=== PATIENT | female | born 1965 | race Caucasian/White ===

== ENCOUNTER → 2023-06-30 | Outpatient (CLI) | payer OTHER, SELFPAY ==
--- NOTE | 2023-06-30 15:37 | BI_ITS ---
MAMMOGRAPHY - BILATERAL SCREENING REASON FOR EXAM: Female, 58 years old. Routine annual screening examination. PERTINENT HISTORY: Mother with breast cancer. Aunt with breast cancer. TECHNIQUE: Digital bilateral breast jaiden (3D mammographic acquisition) in the CC and MLO projections. 2-D mediolateral oblique (MLO) and craniocaudad (CC) views of both breasts were obtained. CAD: Full Field Digital Mammography with Computer Added Detection was performed. COMPARISON: No comparison mammograms available at this time. If any prior films become available, an addendum to this report can be generated. FINDINGS: Breast Composition: The breasts are heterogeneously dense, which may obscure small masses. There are no dominant masses or suspicious calcifications. There is a 6.7 mm x 3.2 mm well-defined nodule in the deep central lateral aspect of the left breast. Correlation with ultrasound is recommended. No other significant abnormalities are identified. BI/SCRN MAMM (CAD)W/JAIDEN BILAT IMPRESSION: 6.7 mm x 3.2 mm well-defined nodule in the deep central lateral aspect of the left breast. Correlation with ultrasound is recommended. ASSESSMENT CATEGORY: BIRADS Category 0: Incomplete. Need additional imaging evaluation. A letter regarding these results will be sent to the patient by the facility within 30 days. Approximately 10% of breast cancers are not detected by mammography. A normal mammogram should not delay biopsy of a clinically suspicious abnormality. [id number] Electronically Signed: Phillip Guerrero MD at 13:00 EST ,
== END | disposition home or self-care (01) ==
LOC: OPBI 15:36
PROVIDERS: PCP Internal Medicine; Referring Provider Obstetrics & Gynecology; Visit Provider Obstetrics & Gynecology
DX: Z12.31 Encounter for screening mammogram for malignant neoplasm of breast (principal)
CPT/HCPCS: 77063; 77067

== ENCOUNTER → 2023-07-13 | Outpatient (CLI) | payer OTHER, SELFPAY ==
--- NOTE | 2023-07-13 13:21 | US_ITS ---
STUDY: ULTRASOUND BREAST - LEFT REASON FOR EXAM: Female, 58 years old. Abnormal screening mammogram. TECHNIQUE: Axial and longitudinal images of the LEFT breast were performed with a high resolution ultrasound transducer. # OF IMAGES: 31 COMPARISON: Comparison is made with prior mammogram dated June 30, 2023. FINDINGS: LEFT Breast: The lateral aspect of the left breast was examined with ultrasound. The mammographic guide mounted corresponds to a 1.1 cm x 0.7 cm and 0.5 cm lymph node. US/Breast Limited Unilateral IMPRESSION: 1.1 cm x 0.7 cm x 0.5 cm benign-appearing lymph node. ASSESSMENT CATEGORY: BIRADS Category 2: Benign. A letter regarding these results will be sent to the patient by the facility within 30 days. Electronically Signed: Phillip Guerrero MD at 14:37 EST ,
== END | disposition home or self-care (01) ==
PROVIDERS: PCP Internal Medicine; Referring Provider Registered Nurse; Visit Provider Registered Nurse
DX: R92.8 Other abnormal and inconclusive findings on diagnostic imaging of breast (principal)
CPT/HCPCS: 76642

== ENCOUNTER 2023-09-27 07:46 | Day surgery (SDC) | payer OTHER, SELFPAY ==
[2023-09-27] VITALS (7 sets, daily range): BP systolic 122–184; BP diastolic 70–102; PULSE 72–91; RESP 16–20; TEMP 36.2–36.9; O2SAT 94–97; BMI 57.2
--- OUTSIDE RECORDS SUMMARY | 2023-09-27 08:11 | XMS RPT_ITS | CCD ---
Author Name Unknown Address [address] [place] [address] Organization [facility] Care Team Providers Care Director Of Undergraduate Admissions Name Role Phone ALVA AYERS Admitting Unavailable JOVANNI CALVO MD Consulting Unavailable ALVA AYERS Attending Unavailable ALVA AYERS Primary Care Unavailable PROVIDER, UNKNOWN Consulting Unavailable PROVIDER, UNKNOWN Consulting Unavailable Problems Problem Classification Problem Date Documented Da te Episodic/Chronic Headache; including migraine (3 sources) Headache; including migraine; Translations: [Headache, unspecified] Onset: 07-26-2020 Nausea and vomiting (1 source) Vomiting, unspecified; Translations: [Vomiting, unspecified] Onset: 07-26-2020 Other gastrointestinal disorders (1 source) Diarrhea, unspecified; Translations: [Diarrhea, unspecified] Onset: 07-26-2020 Episodic Results Test Name Value Interpretation Reference Range Facil ity Encounters Encounter Date Encounter Type Care Provider Facility Start: 07-26-2020 End: 07-26-2020 Patient encounter procedure ALVA AYERS [facility] Payers Date Payer Category Payer Unknown [id number] Unknown [id number] Summary Purpose Family History No Family History Records FoundNo Family History Records Found Advance Directives No Advanced Directives Records FoundNo Advanced Directives Records Found Additional Source Comments INFORMATION SOURCE (unrecogn ized section and content) DATE CREATED AUTHOR AUTHOR'S ORGANIZ ATION 08/07/2020 [facility] FOR RECORDS PERTAINING TO PATIENTS WHO ARE OR HAVE BEEN ENROLLED IN A CHEMICAL DEPENDENCY/SUBSTANCEABUSE PROGRAM, SOME INFORMATION MAY BE OMITTED. This clinical summary was aggregated from multiple sources. Caution should be exercised in using it in the provision of clinical care. This summary normalizes information from multiple sources, and as a consequence, information in this document may materially change the coding, format and clinical context of patient data. In addition, data may be omitted in some cases. CLINICAL DECISIONS SHOULD BE BASED ON THE PRIMARY CLINICAL RECORDS. [facility] [employer] [facility]. provides no warranty or guarantee of the accuracy or completeness of information in this document.
[2023-09-27] MEDS: Lactated Ringers 1,000 ML 15 ML IV (08:18)
--- NOTE | 2023-09-27 09:00 | H&P.OPEN ---
HPI - General General Date of Service: 09/27/23 HPI Narrative DICKSON CHRIS, is a 58 F who presents for screening colonoscopy. Patient states she had a colonoscopy 6 years ago was told to follow-up in 5 years?done in [place]. Patient states her scope was negative do not have the report. Patient denies any chronic abdominal pain/nausea/vomiting/reflux. Patient has bowel movements daily denies any blood. Patient denies any family history of colon cancer. [facility] Medical History Eclampsia Hay fever History of edema Hypertension Leg cramps Migraine headache Non-smoker Post-menopausal Seizures Shingles Shortness of breath on exertion Wears glasses Home Medications losartan 100 mg tablet 100 mg PO DAILY #30 tabs 08/16/23 [Rx Last Taken 09/27/23] Allergy/AdvReac Type Severity Reaction Status Date / Time codeine Allergy Mild Shortness Verified 09/27/23 08:17 of breath Family History Aunt Breast cancer Grandmother Heart disease Ovarian cancer Grandfather Heart disease Grandfather Heart disease Other Hypertension Surgical History History of section History of cholecystectomy History of tonsillectomy and adenoidectomy Hx of colonoscopy Social History (Updated 08/16/23 @ 10:[address] 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 Past Medical/Surgical History Planned Operation Planned Operative Procedure/s: CSCOPE OA Previous Hospitalizations/Surgeries HX Hospitalizations: No Any Problems With Anesthesia: No You/Your Family Experience Fever (Hyperthermia) With Anes: No Cholinesterase deficiency: No Cardiovascular Hx Hypertension: Yes (CONTROLLED WITH MED) Respiratory Hx Sleep Apnea: No Hx Respiratory Tract Infection/Cold (presently): No Do You Snore Loudly (louder than talking or can be heard): No Do You Often Feel Tired/ Fatigued/ Sleepy Dring Daytime?: No Has Anyone Observed You Stop Breathing During Sleep?: No Result (for STOP score): Negative Smoking Status: Never smoker Neurological Does patient have nerve stimulator: No Reproduction : No Miscellaneous Recent Exposure to Contagious Disease: No Allergies codeine Allergy (Mild, Verified 09/27/23 08:17) Shortness of breath Discharge Is Pt Admitted From a Retirement, or a Snf: No After D/C, Where Do you Plan to Go: Return Home Vital Signs Vital Signs Vital Signs: 09/27/23 08:18 09/27/23 08:18 Temperature 98.5 F Temperature Source Temporal Pulse Rate 91 Respiratory Rate 16 Respiratory Pattern Normal Blood Pressure 184/102 H Blood Pressure Mean 129 Blood Pressure Source Monitor Blood Pressure Position Semi-Fowlers Blood Pressure Location Left Forearm Pulse Ox 94 Oxygen Delivery Method Room Air Weight Weight: 312 lb 9.848 oz Body Mass Index (BMI) 57.2 Physical Exam Const alert, oriented x3 and no apparent distress Nutritional Appearance: obese HEENT normocephalic and head/scalp atraumatic Resp normal respiratory effort Cardio regular rate GI soft to palpation and non-tender; Negative for non-distended Palpation: Negative for guarding Extremity no clubbing, cyanosis or edema Skin no rashes or lesions noted Neuro CN's II-XII intact bilaterally Psych mental status grossly normal Assessment & Plan Assessment/Plan (1) Encounter for screening for malignant neoplasm of colon: Surgery Risks - Colonoscopy I discussed with the patient the risks of the procedure: Yes Risks Include but are not Limited To: Risks include but are not limited to: Bleeding, perforation requiring further surgery, inability to complete colonoscopy requiring barium enema.
--- NOTE | 2023-09-27 09:45 | COLBX_PTH ---
PATHOLOGY RESULTS PATIENT: DICKSON CHRIS LOC: EN U#:[id number] AGE/SX: 58/F ROOM: RE09/27/[address]: Dr. Connie Green MD : 1965 BED: DIS: 09/27/2023 SPEC #: [id number] RECD: 09/27/23 11:55 STATUS: VAN REDipti #: [id number] ANJEL: 09/27/23 09:[address]: Connie Green DEPT: SURGICAL PATHOLOGY RECD BY: Nancy aFrrell ENTERED: 09/27/23 11:56 SP TYPE: COLON BX OTHR DR: Dr. Ene Zee MD Tissues: Cecum, NOS Procedures: Surgery Specimen Level IV HEADER OPERATION: Colonoscopy with biopsy - open access PRE-OP DIAGNOSIS: Screening TISSUE SUBMITTED: Cecal lipoma biopsy MICROSCOPIC DIAGNOSIS Cecal lipoma, biopsy: Consistent with submucosal lipoma. SJ:dilma 09/28/2023 MICROSCOPIC DESCRIPTION Slides are reviewed. GROSS DESCRIPTION Received in fixative is one container labeled with the patient's name and designated cecal lipoma biopsy. The specimen consists of multiple irregular fragments of light bran soft tissue that in aggregate measure 1.0 x 0.2 x 0.1 cm. The specimen is totally submitted in one cassette. / SJ:rg 09/27/2023 TC:1 CPT: 20630
--- NOTE | 2023-09-27 10:19 | OP.CCLET_ITS ---
09/27/2023 Ene Zee Md Re : Colonoscopy procedure for Femi Cole Dear Saadia This procedure was performed on Wednesday, September 27, 2023. My impressions and recommendations are as follows: Impressions : - Medium-sized lipoma in the cecum. Biopsied. - The examination was otherwise normal on direct and retroflexion views. Recommendations : - Discharge patient to home. - Resume previous diet. - Continue present medications. - Await pathology results. - Repeat colonoscopy in 10 years for screening purposes. My findings are described in the full procedure note, which is enclosed. If I can be of further assistance, please feel free to contact me at Doctor phone number(s): , Work: . Sincerely, MD Connie Sanchez MD 09/27/2023 10:19:02 AM This report has been signed electronically.
--- NOTE | 2023-09-27 10:19 | OP.COLON_ITS ---
Patient Name: Femi Cole Procedure Date: 09/27/2023 9:44 AM Date of : 1965 Age: 58 Procedure: Colonoscopy Indications: Screening for colorectal malignant neoplasm Providers: Connie Green MD Medicines: Monitored Anesthesia Care Patient Profile: This is a 58 year old female. Last Colonoscopy: 6 years ago. Complications: No immediate complications. Procedure: Pre-Anesthesia Assessment: - Prior to the procedure, a History and Physical was performed, and patient medications and allergies were reviewed. The patient's tolerance of previous anesthesia was also reviewed. The risks and benefits of the procedure and the sedation options and risks were discussed with the patient. All questions were answered, and informed consent was obtained. Prior Anticoagulants: The patient has taken no anticoagulant or antiplatelet agents. ASA Grade Assessment: Per anesthesia. After reviewing the risks and benefits, the patient was deemed in satisfactory condition to undergo the procedure. After I obtained informed consent, the scope was passed under direct vision. Throughout the procedure, the patient's blood pressure, pulse, and oxygen saturations were monitored continuously. The Colonoscope was introduced through the anus and advanced to the cecum, identified by the appendiceal orifice, ileocecal valve and palpation. The colonoscopy was performed without difficulty. The patient tolerated the procedure well. The quality of the bowel preparation was good. Scope In: 9:54:35 AM Scope Withdrawal Time 0 hours 9 minutes 37 seconds Scope Out: 10:08:49 AM Total Procedure Duration Time 0 hours 14 minutes 14 seconds Findings: There was a medium-sized lipoma, 17 mm in diameter, in the cecum. Biopsies were taken with a cold forceps for histology. The exam was otherwise without abnormality on direct and retroflexion views. Impression: - Medium-sized lipoma in the cecum. Biopsied. - The examination was otherwise normal on direct and retroflexion views. Recommendation: - Discharge patient to home. - Resume previous diet. - Continue present medications. - Await pathology results. - Repeat colonoscopy in 10 years for screening purposes. Procedure Code(s): --- Professional --- 46713, PT, Colonoscopy, flexible; with biopsy, single or multiple Diagnosis Code(s): --- Professional --- Z12.11, Encounter for screening for malignant neoplasm of colon D17.5, Benign lipomatous neoplasm of intra-abdominal organs CPT copyright 2021 [employer]. All rights reserved. The codes documented in this report are preliminary and upon water quality control engineer review may be revised to meet current compliance requirements. MD Connie Sanchez MD 09/27/2023 10:19:02 AM This report has been signed electronically. Number of Addenda: 0 Note Initiated On: 09/27/2023 9:44 AM
== END 2023-09-27 10:53 | disposition home or self-care (01) ==
LOC: EN 07:48 → AC 07:49
PROVIDERS: PCP Internal Medicine; Referring Provider Internal Medicine; Visit Provider Surgery
PROC: 0DJD8ZZ Inspection of Lower Intestinal Tract, Via Natural or Artificial Opening Endoscopic (ICD-10-PCS; CPT 45378; principal; 2023-09-27 09:40)
DX: Z12.11 Encounter for screening for malignant neoplasm of colon (principal); I10 Essential (primary) hypertension; Z79.899 Other long term (current) drug therapy; D17.5 Benign lipomatous neoplasm of intra-abdominal organs
CPT/HCPCS: 45380; 88305; J7120; J2405

== ENCOUNTER → 2024-07-19 | Outpatient (CLI) | payer OTHER, SELFPAY ==
--- NOTE | 2024-07-19 13:31 | BI_ITS ---
MAMMOGRAPHY - BILATERAL SCREENING REASON FOR EXAM: Female, 59 years old. Routine annual screening examination. PERTINENT HISTORY: Mother with breast cancer. Aunt with breast cancer. TECHNIQUE: Digital bilateral breast jaiden (3D mammographic acquisition) in the CC and MLO projections. 2-D mediolateral oblique (MLO) and craniocaudad (CC) views of both breasts were obtained. CAD: Full Field Digital Mammography with Computer Added Detection was performed. COMPARISON: Comparison is made with prior study dated June 30, 2023. FINDINGS: Breast Composition: The breasts are heterogeneously dense, which may obscure small masses. There are no dominant masses or suspicious calcifications. Stable 6.3 mm x 3 mm well-defined nodule in the deep central lateral aspect of the left breast. This was demonstrated to be a small lymph node on prior sonogram. No other significant abnormalities are identified. There has been no significant change since the prior study. BI/SCRN MAMM (CAD)W/JAIDEN BILAT IMPRESSION: Stable bilateral screening mammogram. Yearly follow-up mammogram recommended. (A) ASSESSMENT CATEGORY: BIRADS Category 2: Benign. A letter regarding these results will be sent to the patient by the facility within 30 days. Approximately 10% of breast cancers are not detected by mammography. A normal mammogram should not delay biopsy of a clinically suspicious abnormality. [id number] Electronically Signed: Phillip Guerrero MD at 15:02 EST ,
== END | disposition home or self-care (01) ==
LOC: OPBI 13:31
PROVIDERS: PCP Internal Medicine; Referring Provider Obstetrics & Gynecology; Visit Provider Obstetrics & Gynecology
DX: Z12.31 Encounter for screening mammogram for malignant neoplasm of breast (principal)
CPT/HCPCS: 77063; 77067

== ENCOUNTER → 2024-09-13 | Outpatient (CLI) | payer OTHER, SELFPAY ==
[2024-09-13 12:31] LABS: Absolute Lymphocyte Count 1.53 X10^3/uL (0.83-4.51); Absolute Neutrophil Count 3.5 X10^3/uL (2.0-7.7); Basophil# 0.03 X10^3/uL; Basophil% 0.5 % (0-1); Eosinophil# 0.14 X10^3/uL; Eosinophils% 2.5 % (0-5); Hematocrit 45.1 % (37-47); Hemoglobin 14.1 g/dL (12.0-15.0); Lymphocyte # 1.53 X10^3/ul (0.83-4.51); Lymphocyte % 27.7 % (19-41); Mean Corp Hgb Conc 31.3 g/dL (32-36); Mean Corpuscular Hgb 25.4 pg (27.0-32.0); Mean Corpuscular Volume 81.3 fL (81-99); Mean Platelet Vol. 11.4 fl (6.2-12.0); Monocyte# 0.34 X10^3/uL; Monocyte% 6.2 % (0-10); NRBC Flagged by Analyzer 0 % (0-5); Neutrophil # 3.47 X10^3/uL (2.7-7.7); Neutrophil % 62.9 % (47-70); Platelet Count 293 K/mm3 (150-450); RBC Distribution Width CV 13.9 % (11.6-14.6); RBC Distribution Width SD 40.9 fl (35.1-43.9); Red Blood Count 5.55 M/mm3 (4.2-5.4); White Blood Count 5.5 K/mm3 (4.4-11.0)
[2024-09-13 12:59] LABS: ALB/GLOB Ratio 1.1 RATIO (0.9-2.4); AST(SGOT) 23 U/L (15-37); Alanine Aminotransfer ALT/SGPT 53 U/L (13-56); Albumin, Serum 3.7 g/dL (3.2-5.0); Alkaline Phosphatase 140 U/L (45-117); Anion Gap 8 (5-15); BUN 20 mg/dL (7-18); BUN/Creat Ratio 23.5 RATIO (10-20); Calcium,Total 9.1 mg/dL (8.5-10.1); Chloride 102 mmol/L (98-107); Cholesterol 179 mg/dL (200); Creatinine, Serum 0.85 mg/dL (0.55-1.02); EST Glomerular Filtration Rate 73 mL/min (>60); Est Glom Filt Rate - Afr Amer 89 mL/min (>60); Globulin 3.5 g/dL (2.2-4.2); Glucose 195 mg/dL (74-106); High Density Lipoprotein 62 mg/dL; Protein, Total 7.2 g/dL (6.4-8.2); Sodium Level 136 mmol/L (136-145); Triglycerides 71 mg/dL; Very Low Density Lipoprotein 14 mg/dL (5-40)
[2024-09-14 15:01] LABS: Hemoglobin A1c 8.1 % (3.8-5.6)
== END | disposition home or self-care (01) ==
LOC: BIMLAB 07:58
PROVIDERS: PCP Internal Medicine; Referring Provider Physician Assistant; Visit Provider Physician Assistant
DX: Z00.00 Encounter for general adult medical examination without abnormal findings (principal); I10 Essential (primary) hypertension; R73.09 Other abnormal glucose
CPT/HCPCS: 36415; 80053; 80061; 83036; 85025

== ENCOUNTER → 2025-04-18 | Outpatient (CLI) | payer OTHER, SELFPAY ==
[2025-04-18 16:55] LABS: AST(SGOT) 23 U/L (<=31); Alanine Aminotransfer ALT/SGPT 48 U/L (<=34); Albumin, Serum 4.4 g/dL (3.5-5.0); Alkaline Phosphatase 130 U/L (35-104); Anion Gap 12 (5-15); BUN 19 mg/dL (4-19); BUN/Creat Ratio 23.5 RATIO (10-20); Calcium,Total 9.8 mg/dL (7.6-11.0); Carbon Dioxide 25.5 mmol/L (21.0-32.0); Chloride 100 mmol/L (98-108); Globulin 3.0 g/dL (2.2-4.2); Glucose 118 mg/dL (70-99); Potassium 3.8 mmol/L (3.3-5.1)
== END | disposition home or self-care (01) ==
LOC: BIMLAB 15:05
PROVIDERS: Internal Medicine; PCP Internal Medicine; Referring Provider Internal Medicine; Visit Provider Internal Medicine
DX: I10 Essential (primary) hypertension (principal)
CPT/HCPCS: 36415; 80053

== ENCOUNTER → 2025-04-19 | Outpatient (CLI) | payer OTHER, SELFPAY ==
[2025-04-19 13:19] LABS: Creatinine, Urine (random) 157.00 mg/dL (28.00-217.00); Microalbumin,Random Urine 17.6 mg/L (<20 mg/L)
== END | disposition home or self-care (01) ==
LOC: BIMLAB 09:15
PROVIDERS: Internal Medicine; PCP Internal Medicine; Referring Provider Internal Medicine; Visit Provider Internal Medicine
DX: E11.9 Type 2 diabetes mellitus without complications (principal)
CPT/HCPCS: 82043; 82570

== ENCOUNTER → 2025-07-20 | Outpatient (CLI) | payer OTHER, SELFPAY ==
--- NOTE | 2025-07-20 15:30 | BI_ITS ---
EXAM: SCRN MAMM (CAD)W/JAIDEN BILAT DATE: 07/20/2025 CLINICAL HISTORY: F, Age 60 y/o , SCREEN FOR BREAST CANCER TECHNIQUE: Procedure Code: [id number] Modality: MG Procedure: SCRN MAMM (CAD)W/JAIDEN BILAT COMPARISON: Prior exam(s) dated 07/19/2024 and 06/30/2023. FINDINGS: TISSUE DENSITY: The breasts are almost entirely fatty. Bilateral Breast Mammographic Findings: Benign-appearing round microcalcifications are seen in both breast. No suspicious masses, suspicious cluster of microcalcifications, architectural distortion or secondary sign of malignancy is identified in either breast. A stable 6 mm benign-appearing mass in the superior, middle 3rd aspect of the left breast is noted. BI/SCRN MAMM (CAD)W/JAIDEN BILAT IMPRESSION: Benign screening mammogram OVERALL FINAL ASSESSMENT BI-RADS 2: BENIGN RECOMMENDATION: Routine annual follow-up in 1 Year Additional Recommendation none A letter with findings and recommendations will be mailed to the patient. Reading Location: [id number]
--- OUTSIDE RECORDS SUMMARY | 2025-07-20 15:43 | XMS RPT_ITS | CCD ---
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 Nitza Cunningham Attending Provider [phone] Dr. Ene Zee Primary Care Provider Latesha Guevara Attending Provider Unavailable Dr. Ene Zee Attending Provider [phone] Dr. Ene Zee Referring Provider 1(330) Dr. Connie Green Attending Provider Dr. Connie Green Other Provider Saadia MCMANUS, Dr. Luque Primary Care Provider [phone]) Dr. Ene Zee MD Referring Provider Emmanuel Elizondo Attending Provider Emmanuel Elizondo Referring Provider [phone] Ene Zee MD Attending Provider Dr. Payal De La O MD Attending Provider [phone] Dr. Ene Zee MD Primary Care Provider [phone] Dr. Ene Zee MD Referring Provider Dr. Ene Zee MD Attending Provider Ene Zee Primary Care Unavailable Emmanuel Elizondo Attending Unavailable Ene Zee Referring Unavailable Ene Zee Primary Care Unavailable Payal De La O Attending Unavailable Williston, Ene Referring Unavailable Saadia, Ene Attending Unavailable Saadia, Ene Referring Unavailable Saadia, Ene Primary Care Unavailable Payal De La O Attending Unavailable Williston, Ene Referring Unavailable Saadia, Ene Primary Care Unavailable Payal De La O Attending Unavailable Saadia, Ene Referring Unavailable Williston, Ene Primary Care Unavailable Williston, Ene Primary Care Unavailable Emmanuel Elizondo Attending Unavailable Emmanuel Elizondo Referring Unavailable Williston, Ene Attending Unavailable Williston, Ene Referring Unavailable Williston, Ene Primary Care Unavailable Williston, Ene Attending Unavailable Williston, Ene Referring Unavailable Williston, Ene Primary Care Unavailable Saadia, Ene Primary Care Unavailable Nitza Cunningham Attending Unavailable Nitza Cunningham Referring Unavailable Terri Munroe Attending Unavailable Saadia, Ene Primary Care Unavailable Saadia, Ene Referring Unavailable Williston, Ene Primary Care Unavailable Emmanuel Elizondo Attending Unavailable Saadia, Ene Referring Unavailable Saadia MD, Dr. Luque Primary Care Physician Jairon MCMANUS, Dr. Moe Attending Physician [phone] Saadia MCMANUS, Dr. Luque Attending Physician Allergies Allergy Classification Reported Allergen(s) Allergy Type Date of Onset Reaction(s) Facility (7 sources) Codeine Drug Allergy 3 Shortness of breath [facility] (1 source) Codeine Drug Allergy 5 [facility] Repository Medications Current Medications Medication Drug Class(es) Dates Sig (Normalized) Sig (Original) Blood-Glucose Meter (Freestyle Lite Meter) kit (4 sources) Start: 01-11-2025 Blood-Glucose Meter (Freestyle Lite Meter) kit Active 0 .MEDSUPPLY 1 0 January 11, 2025 12:00am Type 2 diabetes mellitus with hyperglycemia As directed, check blood glucose daily for type 2 DM Start: 01-11-2025 Blood-Glucose Meter (Freestyle Lite Meter) kit Active 0 .MEDSUPPLY 1 January 11, 2025 12:00am As directed, check blood glucose daily for type 2 DM glimepiride 2 mg oral tablet (7 sources) Sulfonylurea Start: 01-11-2025 End: 04-18-2025 take 1 tablet by mouth once daily at breakfast 24 hr metFORMIN hydrochloride 500 mg extended release oral tablet (11 sources) Biguanide Start: 04-18-2025 Start: 09-16-2024 End: 04-18-2025 take 1 tablet by mouth twice daily Metformin (Glucophage Xr) 500 mg tablet extended release 24 hr Discontinued 500 mg PO TWICE A DAY 60 1 January 11, 2025 12:00am April 18, 2025 2:57pm naproxen sodium 220 mg oral capsule (4 sources) Nonsteroidal Anti-inflammatory Drug Start: 01-11-2025 take 1 capsule by mouth every twelve hours as needed Completed/Discontinued Medications Medication Drug Class(es) Dates Sig (Normalized) Sig (Original) amoxicillin 875 mg / clavulanate 125 mg oral tablet (7 sources) Penicillin-class Antibacterial Start: 01-23-2020 End: 02-02-2020 Amoxicillin-Pot Clavulanate (Augmentin) 875-125 mg tablet Discontinued 1 {tbl} PO Q12H 20 10 0 January 23, 2020 12:00am February 01, 2020 12:00am February 02, 2020 12:02am Acute sinusitis, unspecified hydroCHLOROthiazide 12.5 mg / lisinopril 10 mg oral tablet (7 sources) Thiazide Diuretic, Angiotensin Converting Enzyme Inhibitor Start: 01-23-2020 End: 06-21-2023 Lisinopril-[place] chlorothiazide 10-12.5 mg tablet Discontinued NMA PO January 23, 2020 12:00am June 21, 2023 3:40pm Start: 01-23-2020 End: 06-21-2023 Lisinopril-Hydrochlorothiazi de Discontinued EACH PO January 22, 2020 11:00pm June 21, 2023 2:40pm hydroCHLOROthiazide 12.5 mg / valsartan 160 mg oral tablet (18 sources) Thiazide Diuretic, Angiotensin 2 Receptor Roxana Start: 09-13-2024 End: 04-18-2025 Valsartan-Hydrochlorothiazid e 160-12.5 mg tablet Discontinued 1 {tbl} PO daily 30 1 November 13, 2024 8:30am January 12, 2025 1:25pm Start: 08-11-2024 End: 09-13-2024 Valsartan-Hydrochlorothiazid e 80-12.5 mg tablet Discontinued 1 {tbl} PO daily 30 0 August 11, 2024 1:00am September 13, 2024 8:53am losartan potassium 100 mg oral tablet (20 sources) Angiotensin 2 Receptor Roxana Start: 08-16-2023 End: 07-21-2024 take 1 tablet by mouth once daily Losartan 100 mg tablet Discontinued 100 mg PO DAILY 30 0 November 15, 2023 9:10am July 21, 2024 9:06am Start: 06-21-2023 End: 08-16-2023 take 1 tablet by mouth once daily Losartan 50 mg tablet Discontinued 50 mg PO DAILY 30 June 22, 2023 5:12pm August 16, 2023 11:28am Problems Active Problems Problem Classification Problem Date Documented Da te Episodic/Chronic Administrative/social admission (1 source) Persons encountering health services in other specified circumstances; Translations: [Other reasons for seeking consultation] 08-16-2023 Episodic Diabetes mellitus with complications (1 source) Type 2 diabetes mellitus with hyperglycemia; Translations: [Type 2 diabetes mellitus with hyperglycemia] Onset: 01-11-2025 Chronic Diabetes mellitus without complication (10 sources) Type 2 diabetes mellitus; Translations: [Type 2 diabetes mellitus without complications] Onset: 05-04-2025 01-11-2025 Chronic Essential hypertension (14 sources) Essential hypertension; Translations: [Essential (primary) hypertension] Onset: 05-03-2025 08-12-2023 Chronic Headache; including migraine (3 sources) Headache; including migraine; Translations: [Headache, unspecified] Onset: 07-26-2020 Nausea and vomiting (1 source) Vomiting, unspecified; Translations: [Vomiting, unspecified] Onset: 07-26-2020 Other connective tissue disease (1 source) Other symptoms and signs involving the nervous system; Translations: [Other symptoms involving nervous and musculoskeletal systems] 08-16-2023 Episodic Other gastrointestinal disorders (1 source) Diarrhea, unspecified; Translations: [Diarrhea, unspecified] Onset: 07-26-2020 Episodic Other lower respiratory disease (1 source) Wheezing; Translations: [Wheezing] 08-16-2023 Episodic Other upper respiratory infections (7 sources) Acute sinusitis; Translations: [Acute sinusitis, unspecified] 01-23-2020 Episodic Residual codes; unclassified (3 sources) Sleep apnea; Translations: [Sleep apnea, unspecified] 01-11-2025 Chronic Residual codes; unclassified (7 sources) Family history of malignant neoplasm of ovary; Translations: [Family history of malignant neoplasm of ovary] 06-21-2023 Episodic Comment on above: empower screening or dered Residual codes; unclassified (3 sources) Family history of malignant neoplasm of ovary; Translations: [Family history of malignant neoplasm of ovary] 06-21-2023 Episodic Residual codes; unclassified (1 source) Immunization not carried out because of patient refusal; Translations: [Vaccination not carried out because of patient refusal] 08-16-2023 Episodic Past or Other Problems Problem Classification Problem Date Documented Da te Episodic/Chronic Other screening for suspected conditions (not mental disorders or infectious disease) (8 sources) Patient encounter status; Translations: [Encounter for screening for malignant neoplasm of colon] Onset: 08-20-2024 08-12-2023 Episodic Results Test Name Value Interpretation Reference Range Facility Microalb:Creat Ratio,Random URon 04-19-2025 Creatinine [Mass/Vol] 157.00 mg/dL Normal 28.00-217.00 [facility] Comment on above: Performed By: #### L 502.0250 #### [facility] [address] [place], [place], [id number] MALB:CREAT 11.2 mg/g CRE Normal <30 mg/g CRE [facility] Comment on above: Performed By: #### L 502.0250 #### [facility] [address] [place], [place], [id number] MICROALBUMIN,UR 17.6 mg/L Normal <20 mg/L [facility] Comment on above: Performed By: #### L 502.0250 #### [facility] [address] [place], [place], [id number] Random urine creatinine corey urement (mass/volume)Ordered By: Payal De La O on 04-19-2025 Creatinine Unsp time (U) [Mass/Vol] 157.00 mg/dL 28.00-217.00 [facility] Urine albumin measurement [facility] detection limit of 20 mg/L or less (mass/volume)Ordered By: Payal De La O on 04-19-2025 Albumin DL <= 20 mg/L (U) [Mass/Vol] 17.6 mg/L <20 mg/L [facility] Anion gap in Serum or Plasma Ordered By: Payal De La O on 04-18-2025 Anion gap [Moles/Vol] 12 mmol/L - [facility] BUN/creatinine ratioOrdered By: Payal De La O on 04-18-2025 Urea nitrogen/Creatinine [Mass ratio] 23.5 mg/mg High 05-28 [facility] Bilirubin, totalOrdered By: Payal De La O on 04-18-2025 Bilirubin [Mass/Vol] 0.38 mg/dL 0.00-1.30 [facility] Carbon dioxide, total [Moles /volume] in Central venous bloodOrdered By: Payal De La O on 04-18-2025 CO2 [Moles/Vol] 25.5 mmol/L 21.0-32.0 [facility] Chloride assayOrdered By: Lon De La O on 04-18-2025 Chloride [Moles/Vol] 100 mmol/L 98-108 [facility] Comprehensive Metabolic Prof ilon 04-18-2025 Albumin [Mass/Vol] 4.4 g/dL Normal 3.5-5.0 [facility] Comment on above: Performed By: #### L 500.4050, L502.0250 #### [facility] [address] [place], [address] Albumin/Globulin [Mass ratio] 1.5 {ratio} Normal 0.9-2.4 [facility] Comment on above: Performed By: #### L 500.4050, L502.0250 #### [facility] [address] [place], [address] ALK PHOS 130 U/L High 35-104 [facility] Comment on above: Performed By: #### L 500.4050, L502.0250 #### [facility] [address] [place], [address] ALT [Catalytic activity/Vol] 48 U/L High <=34 [facility] Comment on above: Performed By: #### L 500.4050, L502.0250 #### [facility] [address] [place], [address] AST [Catalytic activity/Vol] 23 U/L Normal <=31 [facility] Comment on above: Performed By: #### L 500.4050, L502.0250 #### [facility] [address] [place], [address] Bilirubin [Mass/Vol] 0.38 mg/dL Normal 0.00-1.30 [facility] Comment on above: Performed By: #### L 500.4050, L502.0250 #### [facility] [address] [place], [address] BUN/CRE 23.5 RATIO High 10-20 [facility] Comment on above: Performed By: #### L 500.4050, L502.0250 #### [facility] [address] [place], [address] Calcium [Mass/Vol] 9.8 mg/dL Normal 7.6-11.0 [facility] Comment on above: Performed By: #### L 500.4050, L502.0250 #### [facility] [address] [place], [address] Chloride [Moles/Vol] 100 mmol/L Normal 98-108 [facility] Comment on above: Performed By: #### L 500.4050, L502.0250 #### [facility] [address] [place], [address] CO2 [Moles/Vol] 25.5 mmol/L Normal 21.0-32.0 [facility] Comment on above: Performed By: #### L 500.4050, L502.0250 #### [facility] [address] [place], [address] Creatinine [Mass/Vol] 0.82 mg/dL Normal 0.70-1.20 [facility] Comment on above: Performed By: #### L 500.4050, L502.0250 #### [facility] [address] [place], [address] GAP 12 Normal 5-15 [facility] Comment on above: Performed By: #### L 500.4050, L502.0250 #### [facility] [address] [place], [address] GFR/1.73 sq M.predicted among non-blacks MDRD (S/P/Bld) [Vol rate/Area] 83 mL/min/{1.73_m2} Normal >60 [facility] Comment on above: Result Comment: mL/m in/1.73m2 CKD-EPI Creatinine Equation (2020) Performed By: #### L 500.4050, L502.0250 #### [facility] [address] [place], [address] Globulin (S) [Mass/Vol] 3.0 g/dL Normal 2.2-4.2 [facility] Comment on above: Performed By: #### L 500.4050, L502.0250 #### [facility] [address] [place], [address] Glucose [Mass/Vol] 118 mg/dL High 70-99 [facility] Comment on above: Performed By: #### L 500.4050, [id number] #### [facility] [address] [place], [address] Potassium [Moles/Vol] 3.8 mmol/L Normal 3.3-5.1 [facility] Comment on above: Performed By: #### L 500.4050, L502.0250 #### [facility] [address] [place], [address] Sodium [Moles/Vol] 138 mmol/L Normal 133-145 [facility] Comment on above: Performed By: #### L 500.4050, [id number] #### [facility] [address] [place], [address] T PROT 7.5 g/dL Normal 5.9-8.4 [facility] Comment on above: Performed By: #### L 500.4050, [id number] #### [facility] [address] [place], [address] Urea nitrogen [Mass/Vol] 19 mg/dL Normal 4-19 [facility] Comment on above: Performed By: #### L 500.4050, L502.0250 #### [facility] [address] [place], [address] Glomerular filtration rate ( GFR) estimation/1.73 sq m using serum, plasma, or whole bOrdered By: Payal De La O on 04-18-2025 GFR/1.73 sq M.predicted among non-blacks MDRD (S/P/Bld) [Vol rate/Area] 83 mL/min/{1.73_m2} >60 [facility] Comment on above: mL/min/1.73m2 CKD-EP I Creatinine Equation (2020) Internal Medicine Office Vis itolidia 04-18-2025 Internal Medicine Office Visit [facility] [address] [place] [address] [place] [address] OFFICE VISIT Date of Service: 04/18/25 MR#: [id number] Acct: [id number] Name: DICKSON CHRIS Rep #: [id number] : 1965 Provider: Dr. Payal arciniega MD Age/Sex: 59/F Location: [facility] Status: Signed Intake Vital Signs 01/11/25 16:37 04/18/25 14:40 Height 5 ft 2 in 5 ft 2 in Weight: 301 lb BMI 55.0 BP 128/64 H Blood Pressure Location Lt brachial Position Sitting Respiration 18 Pulse 84 Pulse Source Monitor Temp 97.5 F L Temp Source Temporal Pulse Oximetry (%) 96 Oxygen Delivery Method room air Intake Visit Reasons: 3 M FU Chief Complaint: 3 M FU Is patient in pain?: No Allergies codeine Allergy (Mild, Verified 04/18/25 14:39) Shortness of breath Medications ???Medication ???Instructions ???Recorded ???Confirmed ???Type blood sugar diagnostic (FreeStyle #100 ea 01/11/25 04/18/25 Rx Lite Strips) blood-glucose meter (FreeStyle #1 ea 01/11/25 04/18/25 Rx Lite Meter kit) lancets 28 gauge (FreeStyle #200 ea 01/11/25 04/18/25 Rx Lancets) naproxen sodium 220 mg capsule 220 mg PO Q12H PRN 01/11/25 History (Aleve) glimepiride 2 mg tablet 2 mg PO QAM #90 tabs 04/18/2504/09 Rx metformin 500 mg tablet,extended 1,000 mg (2 x 500 mg) PO BID 3 06/0204/18/25 Rx release 24 hr (Glucophage XR) months #360 tabs valsartan 160 1 tab PO QDAY #90 tabs 04/18/25 Rx mg-hydrochlorothiaz panda 12.5 mg tablet PFSH Medical History Sleep apnea Type 2 diabetes mellitus Post-menopausal Wears glasses Migraine headache Seizures Non-smoker Shortness of breath on exertion Leg cramps History of edema Eclampsia Shingles Hay fever Hypertension Surgical History Hx of colonoscopy History of tonsillectomy and adenoidectomy History of cholecystectomy History of section Family History Aunt Breast cancer Grandmother Heart disease Ovarian cancer Grandfather Heart disease Grandfather Heart disease Mother Hypertension Social History adopted: Yes household members: spouse number of children: 1 current occupational status: employed current occupation: works for the [employer] ( job and family) current occupational exposures/hazards: No pets and animals: Yes (1) pets and animals: cat(s) history of recent travel: Yes out of state: Yes sexually active: Yes Smoking Status: Never smoker Electronic Cigarette Use: not used alcohol intake: current alcohol intake frequency: holidays/special occasions only substance use type: does not use caffeine: No what type of physical activity do you participate in: walking frequency: daily seatbelt use: always do you feel safe at home: Yes additional social history: Spouse - Khris warehouse operations associate HPI HPI Chief Complaint: 3 M FU Details: DICKSON CHRIS, is a 59-year-old female presenting with a follow-up visit for diabetes and hypertension management. Previously diagnosed with Type 2 Diabetes Mellitus, the patient's blood glucose levels had been a concern. Her most recent hemoglobin A1c was 7.7, indicating improvement from previous levels, but she aims for further reduction. She has been actively making lifestyle changes, including using a mini trampoline for exercise, which she reports as beneficial for her knees and enjoyable. The patient reported adjusting her activity temporarily due to a minor ankle injury sustained while stepping off a curb. The patient also reported improvement in nocturia, currently getting up once at night compared to hourly disruptions previously. Her hypertension has shown improvement as well, with current measurements indicating better control. The patient is motivated to continue enhancing her health indices. Other chronic medical conditions are stable. Follow-up with [facility] as scheduled. Attestation: Documentation on this patient encounter was supported using ambient scribe technology/ voice AI technology. The patient consented to recording for the purpose of documenting the encounter. Provider reviewed content of the generated note prior to signature. ROS Const Constitutional: No body ache, chills, excessive sweating, fatigue, fever(s), frequent falls, headache(s), snoring, weight change, sleep problems, abnormal sleep pattern or change in appetite Eyes Eyes: No blurry vision, change in vision, vision loss, dry eyes, eye pain or Light sensitivity ENT ENT: No abnormal hearing, ear or mastoid pain, tinnitus, dizziness/vertigo, nasal congestion, headache(s), (more content not included)... Normal [facility] - Chemistry and C hemistry - challengeOrdered By: Payal De La O on 04-18-2025 AST [Catalytic activity/Vol] 23 U/L <32 [facility] - Hematology and Cell countsOrdered By: Payal De La O on 04-18-2025 HbA1c (Bld) [Mass fraction] 7.7 % High 4.2-6.3 [facility] Microalb:Creat Ratio,Random URon 04-18-2025 MALB:CREAT Normal <30 mg/g CRE [facility] Comment on above: Result Comment: UTO Performed By: #### L 500.4050, L502.0250 #### [facility] [address] [place], [address] MICROALBUMIN,UR Normal <20 mg/L [facility] Comment on above: Result Comment: UTO Performed By: #### L 500.4050, [id number] #### [facility] [address] [place], [address] UR CREAT Normal 28.00-217.00 [facility] Comment on above: Result Comment: UTO Performed By: #### L 500.4050, [id number] #### [facility] [address] [place], [address] Potassium measurement (mass/ volume)Ordered By: Payal De La O on 04-18-2025 Potassium (Unsp spec) [Mass/Vol] 3.8 mmol/L 3.3-5.1 [facility] Serum creatinine measurement (mass/volume)Ordered By: Payal De La O on 04-18-2025 Creatinine [Mass/Vol] 0.82 mg/dL 0.70-1.20 [facility] Serum globulin measurementOr dered By: Payal De La O on 04-18-2025 Globulin (S) [Mass/Vol] 3.0 g/dL 2.2-4.2 [facility] Serum glucose measurement (m ass/volume)Ordered By: Payal De La O on 04-18-2025 Glucose [Mass/Vol] 118 mg/dL High 70-99 [facility] Serum or plasma alanine triana otransferase (ALT) measurementOrdered By: Payal De La O on 04-18-2025 ALT [Catalytic activity/Vol] 48 U/L High <35 [facility] Serum or plasma albumin corey urement (mass/volume)Ordered By: Payal De La O on 04-18-2025 Albumin [Mass/Vol] 4.4 g/dL 3.5-5.0 [facility] Serum or plasma albumin/glob ulin mass ratioOrdered By: Payal De La O on 04-18-2025 Albumin/Globulin [Mass ratio] 1.5 {ratio} 0.9-2.4 [facility] Serum or plasma alkaline ena sphatase measurementOrdered By: Payal De La O on 04-18-2025 ALP [Catalytic activity/Vol] 130 U/L High 35-104 [facility] Serum or plasma calcium corey urement (mass/volume)Ordered By: Payal De La O on 04-18-2025 Calcium [Mass/Vol] 9.8 mg/dL 7.6-11.0 [facility] Serum or plasma urea nitroge n measurement (mass/volume)Ordered By: Payal De La O 04-18-2025 Urea nitrogen [Mass/Vol] 19 mg/dL 4-19 [facility] Sodium levelOrdered By: Evelio toddcassie Jairon on 04-18-2025 Sodium [Moles/Vol] 138 mmol/L 133-145 [facility] Total proteinOrdered By: Shar De La O on 04-18-2025 Protein [Mass/Vol] 7.5 g/dL 5.9-8.4 [facility] Internal Medicine Office Vis donis 01-11-2025 Internal Medicine Office Visit [facility] [address] [place] [address] [address] [place] [address] OFFICE VISIT Date of Service: 01/11/25 MR#: [id number] Acct: [id number] Name: DICKSON CHRIS Rep #: [id number] : 1965 Provider: Dr. 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 Is patient in pain?: No Allergies codeine Allergy (Mild, Verified 01/11/25 16:27) Shortness of breath Medications ???Medication ???Instructions ???Recorded ???Confirmed ???Type blood sugar diagnostic (FreeStyle #100 ea 01/11/25 01/11/25 Rx Lite Strips) blood-glucose meter (FreeStyle #1 ea 01/11/25 01/11/25 Rx Lite Meter kit) glimepiride 2 mg tablet 2 mg PO QAM #30 tabs 01/11/2512/31 Rx lancets 28 gauge (FreeStyle #200 ea 01/11/25 01/11/25 Rx Lancets) metformin 500 mg tablet,extended 500 mg PO BID #60 tabs 01/11/25 Rx release 24 hr (Glucophage XR) naproxen sodium 220 mg capsule 220 mg PO Q12H PRN 01/11/25 History (Aleve) valsartan 160 1 tab PO QDAY #90 tabs 01/12/25 Rx mg-hydrochlorothiaz panda 12.5 mg tablet Nurse's Note: Pt will call next week as she has about a weeks worth or so left on bp med. PFSH Medical History (Updated 01/11/25 @ 17:[address] Payal De La O MD) Sleep apnea Type 2 diabetes mellitus Post-menopausal Wears glasses Migraine headache Seizures Non-smoker Shortness of breath on exertion Leg cramps History of edema Eclampsia Shingles Hay fever Hypertension Surgical History (Updated 01/11/25 @ 16:33 by Brenda Kimball MA) Hx of colonoscopy History of tonsillectomy and adenoidectomy History of cholecystectomy History of section Family History (Updated 01/11/25 @ 16:34 by Brenda Kimball MA) Aunt Breast cancer Grandmother Heart disease Ovarian cancer Grandfather Heart disease Grandfather Heart disease Mother Hypertension Social History (Updated 01/11/25 @ 16:37 by Brenda Kimball MA) adopted: Yes household members: spouse number of children: 1 current occupational status: employed current occupation: works for the [employer] ( job and family) current occupational exposures/hazards: No pets and animals: Yes (1) pets and animals: cat(s) history of recent travel: Yes out of state: Yes sexually active: Yes Smoking Status: Never smoker Electronic Cigarette Use: not used alcohol intake: current alcohol intake frequency: holidays/special occasions only substance use type: does not use caffeine: No what type of physical activity do you participate in: walking frequency: daily seatbelt use: always do you feel safe at home: Yes additional social history: Spouse - Khris muñozwarehouse operations associate HPI HPI Chief Complaint: BP CHECK Details: DICKSON CHRIS, is a 59 F who presents to the office today to establish care/transfer care. Previously seen Dr. Zee and most recently DAYSI Cooper. No acute concerns at this time. History of hypertension, currently on valsartan - hydrochlorothiazide which she reports compliance with. Blood pressure today at 132/84 mmHg. She states that she tries to stay active/exercise. No tobacco or alcohol abuse. History of diabetes mellitus type 2. Last A1c was at 8.1 and she was advised to start metformin however she opted to try dietary and lifestyle modifications instead which she states that she has tried to do. A1c today is at 10.4. She is now open to medication. She reports fatigue. Believes that she snores but states that she does not sleep through the night. Maybe gets 4 to 6 hours of sleep every night. Currently at a BMI of 54.3. History of hypertension. ROS Const Constitutional: No body ache, chills, excessive sweating, fatigue, fever(s), frequent falls, headache(s), snoring, weakness, sleep problems or change in appetite Eyes Eyes: No blurry vision, change in vision, bulging eyes, floaters, visual disturbances, eye pain or Light sensitivity ENT ENT: No abnormal hearing, ear or mastoid pain, tinnitus, balance problems, nosebleed/epistaxis , nasal congestion, headache(s), neck pain or sore throat Resp Respiratory: No cough, excessive phlegm production, pain on inspiration, shortness of breath, snoring or wheezing Cardio Cardiology: No chest pain at rest, chest pain with exertion, excessive sweating, shortness of breath, dy (more content not included)... Normal [facility] Laboratory - Hematology and Cell countsOrdered By: Payal De La O on 01-11-2025 HbA1c (Bld) [Mass fraction] 10.9 % High 4.2-6.3 [facility] Office Visit Reporton [address] [facility] [address] [place] [address] OFFICE VISIT Date of Service: 11/13/24 MR#: [id number] Acct: [id number] Patient: DICKSON CHRIS Rep #: [id number] : 1965 Provider: WEST NURSE Age/Sex: 59/F Location: [facility] Status: Signed Intake Vital Signs 09/13/24 07:33 11/13/24 08:05 11/13/24 08:11 Height 5 ft 2 in Weight: 305 lb 4 oz BMI 55.8 BP 164/92 H 142/88 H 142/88 H Blood Pressure Location Lt brachial Lt brachial Lt brachial Position Sitting Sitting Sitting Respiration 20 H Pulse 78 67 Pulse Source Monitor Temp 96.1 F L Temp Source Temporal Pulse Oximetry (%) 94 Oxygen Delivery Method room air Comment wt per pt request Intake Visit Reasons: BP CHECK Chief Complaint: BP CHECK Allergies codeine Allergy (Mild, Verified 09/13/24 07:27) Shortness of breath Medications ???Medication ???Instructions ???Recorded ???Confirmed ???Type metformin 500 mg tablet,extended 500 mg PO BID #60 tabs 09/16/24 R x release 24 hr valsartan 160 1 tab PO QDAY #30 tabs 11/13/24 Rx mg-hydrochlorothiaz panda 12.5 mg tablet Nurse's Note: pt reports that she is working on lifestyle and dietary modifications to lower blood pressure and blood sugar. She plans to do this instead of take metformin to see if it improves her blood sugars. pt was advised that PCP Dr. Zee recommends she take her metformin as ordered. pt will be establishing with Dr. De La O and plans to discuss blood sugars and blood pressures then. Assessment and Plan Assessment and Plan (1) Essential hypertension: Status: Acute Medications: Refilled valsartan-hydrochlo rothiazide 160-12.5 mg 1 TAB PO QDAY 30 tabs 1RF 11/13/24 0831 Date Ene Velasco Signature: Date (if applicable) CC: Normal [facility] Hemoglobin A1con 09-14-2024 HbA1c (Bld) [Mass fraction] 8.1 % High 3.8-5.6 [facility] Comment on above: Result Comment: Norm al < 5.7 % Prediabetic 5.7 - 6.4 % Diabetic >or= 6.5 % Please note range changes. Performed By: #### L 501.9985 #### [facility] Laboratory [facility] [place], [address] Absolute lymphocyte countOrd ered By: Emmanuel Kim on 09-13-2024 Lymphocytes Auto (Unsp spec) [#/Vol] 1.53 10*3/uL 0.83-4.51 [facility] Absolute neutrophil countOrd ered By: Emmanuel Kim on 09-13-2024 Neutrophils (Bld) [#/Vol] 3.5 10*3/uL 2.0-7.7 [facility] Albumin to globulin ratioOrd ered By: Emmanuel Kim on 02-05-2025 Albumin/Globulin [Mass ratio] 1.1 {ratio} 0.9-2.4 [facility] Automated lymphocyte count a s percentage of total leukocytesOrdered By: Emmanuel Kim on 09-13-2024 Lymphocytes/100 WBC Auto (Unsp spec) 27.7 % 19-41 [facility] Basophil percentageOrdered B y: Emmanuel Kim on 09-13-2024 Basophils/100 WBC (Bld) 0.5 % 0-1 [facility] Bilirubin, totalOrdered By: Emmanuel Kim on 09-13-2024 Bilirubin [Mass/Vol] 0.40 mg/dL 0.20-1.00 [facility] Comment on above: For patients on eltr ombopag therapy, use of Dimension [place] TBIL is not recommended. Blood urea nitrogen (BUN)/cr eatinine ratioOrdered By: Emmanuel Kim on 09-13-2024 Urea nitrogen/Creatinine [Mass ratio] 23.5 mg/mg High 10-20 [facility] CBC W/Diff, Automatedon Absolute Lymph 1.53 X10 3/uL Normal 0.83-4.51 [facility] Comment on above: Performed By: #### L 500.4050, L100.0100, L500.4100 #### [facility] Laboratory [address] [place], [address] Absolute Neut 3.5 X10 3/uL Normal 2.0-7.7 [facility] Comment on above: Performed By: #### L 500.4050, L100.0100, L500.4100 #### [facility] [address] [place], [address] Basophils/100 WBC (Bld) 0.5 % Normal 0-1 [facility] Comment on above: Performed By: #### L 500.4050, L100.0100, L500.4100 #### [facility] [address] [place], [address] Eosinophils/100 WBC (Bld) 2.5 % Normal 0-5 [facility] Comment on above: Performed By: #### L 500.4050, L100.0100, L500.4100 #### [facility] [address] [place], [address] Erythrocyte distribution width (RBC) [Ratio] 13.9 % Normal 11.6-14.6 [facility] Comment on above: Performed By: #### L 500.4050, L100.0100, L500.4100 #### [facility] [address] [place], [address] Hematocrit (Bld) [Volume fraction] 45.1 % Normal 37-47 [facility] Comment on above: Performed By: #### L 500.4050, L100.0100, L500.4100 #### [facility] [address] [place], [address] Hemoglobin (Bld) [Mass/Vol] 14.1 g/dL Normal 12.0-15.0 [facility] Comment on above: Performed By: #### L 500.4050, L100.0100, L500.4100 #### [facility] [address] [place], [address] IG% 0.200 Normal 0.0-0.9 [facility] Comment on above: Result Comment: IG% - Immature Granulocytes (promyelocytes, myelocytes and metamyelocytes) > 1% indicates that a LEFT SHIFT is Present. Performed By: #### L 500.4050, L100.0100, L500.4100 #### [facility] [address] [place], [address] Lymphocytes/100 WBC (Bld) 27.7 % Normal 19-41 [facility] Comment on above: Performed By: #### L 500.4050, L100.0100, L500.4100 #### [facility] [address] [place], [address] MCH (RBC) [Entitic mass] 25.4 pg Low 27.0-32.0 [facility] Comment on above: Performed By: #### L 500.4050, L100.0100, L500.4100 #### [facility] [address] [place], [address] MCHC (RBC) [Mass/Vol] 31.3 g/dL Low 32-36 [facility] Comment on above: Performed By: #### L 500.4050, L100.0100, L500.4100 #### [facility] [address] [place], [address] MCV (RBC) [Entitic vol] 81.3 fL Normal 81-99 [facility] Comment on above: Performed By: #### L 500.4050, L100.0100, L500.4100 #### [facility] [address] [place], [address] Monocytes/100 WBC (Bld) 6.2 % Normal 0-10 [facility] Comment on above: Performed By: #### L 500.4050, L100.0100, L500.4100 #### [facility] [address] [place], [address] Neutrophils/100 WBC (Bld) 62.9 % Normal 47-70 [facility] Comment on above: Performed By: #### L 500.4050, L100.0100, L500.4100 #### [facility] [address] [place], [address] Nucleated RBC (Bld) [#/Vol] 0 10*3/uL Normal 0-5 [facility] Comment on above: Performed By: #### L 500.4050, L100.0100, L500.4100 #### [facility] [address] [place], [address] Platelet mean volume (Bld) [Entitic vol] 11.4 fL Normal 6.2-12.0 [facility] Comment on above: Performed By: #### L 500.4050, L100.0100, L500.4100 #### [facility] [address] [place], [address] Platelets (Bld) [#/Vol] 293 10*3/uL Normal 150-450 [facility] Comment on above: Performed By: #### L 500.4050, L100.0100, L500.4100 #### [facility] [address] [place], [address] RBC (Bld) [#/Vol] 5.55 10*6/uL High 4.2-5.4 [facility] Comment on above: Performed By: #### L 500.4050, L100.0100, L500.4100 #### [facility] [address] [place], [address] RDW SD 40.9 fl Normal 35.1-43.9 [facility] Comment on above: Performed By: #### L 500.4050, L100.0100, L500.4100 #### [facility] [address] [place], [address] WBC (Bld) [#/Vol] 5.5 10*3/uL Normal 4.4-11.0 [facility] Comment on above: Performed By: #### L 500.4050, L100.0100, L500.4100 #### [facility] [address] [place], [address] Carbon dioxide measurementOr dered By: Emmanuel Kim on 09-13-2024 CO2 [Moles/Vol] 26.0 mmol/L 21.0-32.0 [facility] Chloride measurementOrdered By: Emmanuel Kim on 09-13-2024 Chloride [Moles/Vol] 102 mmol/L 98-107 [facility] Comprehensive Metabolic Prof ilon 09-13-2024 Albumin [Mass/Vol] 3.7 g/dL Normal 3.2-5.0 [facility] Comment on above: Performed By: #### L 500.4050, L100.0100, L500.4100 #### [facility] [address] [place], [address] Albumin/Globulin [Mass ratio] 1.1 {ratio} Normal 0.9-2.4 [facility] Comment on above: Performed By: #### L 500.4050, L100.0100, L500.4100 #### [facility] [address] [place], [address] ALK P 140 U/L High 45-117 [facility] Comment on above: Performed By: #### L 500.4050, L100.0100, L500.4100 #### [facility] [address] [place], [address] ALT [Catalytic activity/Vol] 53 U/L Normal 13-56 [facility] Comment on above: Performed By: #### L 500.4050, L100.0100, L500.4100 #### [facility] [address] [place], [address] AST [Catalytic activity/Vol] 23 U/L Normal 15-37 [facility] Comment on above: Performed By: #### L 500.4050, L100.0100, L500.4100 #### [facility] [address] [place], [address] Bilirubin [Mass/Vol] 0.40 mg/dL Normal 0.20-1.00 [facility] Comment on above: Result Comment: For patients on eltrombopag therapy, use of Dimension [place] TBIL is not recommended. Performed By: #### L 500.4050, L100.0100, L500.4100 #### [facility] [address] [place], [address] BUN/CRE 23.5 RATIO High 10-20 [facility] Comment on above: Performed By: #### L 500.4050, L100.0100, L500.4100 #### [facility] [address] [place], [address] CA,Total 9.1 mg/dL Normal 8.5-10.1 [facility] Comment on above: Performed By: #### L 500.4050, L100.0100, L500.4100 #### [facility] [address] [place], [address] Chloride [Moles/Vol] 102 mmol/L Normal 98-107 [facility] Comment on above: Performed By: #### L 500.4050, L100.0100, L500.4100 #### [facility] [address] [place], [address] CO2 [Moles/Vol] 26.0 mmol/L Normal 21.0-32.0 [facility] Comment on above: Performed By: #### L 500.4050, L100.0100, L500.4100 #### [facility] [address] [place], [address] Creatinine [Mass/Vol] 0.85 mg/dL Normal 0.55-1.02 [facility] Comment on above: Result Comment: The validity of the calculated GFR GFRAA in patients over 70 years has not been determined. Clinical correlation is essential. Performed By: #### L 500.4050, L100.0100, L500.4100 #### [facility] [address] [place], [address] EST GFR - AA 89 mL/min Normal >60 [facility] Comment on above: Result Comment: Afri can Martiniquais GFR Calc Performed By: #### L 500.4050, L100.0100, L500.4100 #### [facility] [address] [place], [address] GAP 8 Normal 5-15 [facility] Comment on above: Performed By: #### L 500.4050, L100.0100, L500.4100 #### [facility] [address] [place], [address] GFR/1.73 sq M.predicted among non-blacks MDRD (S/P/Bld) [Vol rate/Area] 73 mL/min/{1.73_m2} Normal >60 [facility] Comment on above: Result Comment: Non- GFR Calc Performed By: #### L 500.4050, L100.0100, L500.4100 #### [facility] [address] [place], [address] Globulin (S) [Mass/Vol] 3.5 g/dL Normal 2.2-4.2 [facility] Comment on above: Performed By: #### L 500.4050, L100.0100, L500.4100 #### [facility] [address] [place], [address] Glucose [Mass/Vol] 195 mg/dL High 74-106 [facility] Comment on above: Result Comment: Fast ing Glucose result greater than or equal to 126 mg/dL suggests DIABETES MELLITUS per A.D.A. criteria. Performed By: #### L 500.4050, L100.0100, L500.4100 #### [facility] [address] [place], [address] Potassium [Moles/Vol] 4.0 mmol/L Normal 3.5-5.1 [facility] Comment on above: Performed By: #### L 500.4050, L100.0100, L500.4100 #### [facility] [address] [place], [address] Sodium [Moles/Vol] 136 mmol/L Normal 136-145 [facility] Comment on above: Performed By: #### L 500.4050, L100.0100, L500.4100 #### [facility] [address] [place], [address] T PROT 7.2 g/dL Normal 6.4-8.2 [facility] Comment on above: Performed By: #### L 500.4050, L100.0100, L500.4100 #### [facility] [address] [place], [address] Urea nitrogen [Mass/Vol] 20 mg/dL High 7-18 [facility] Comment on above: Performed By: #### L 500.4050, L100.0100, L500.4100 #### [facility] [address] [place], [address] Eosinophil percentageOrdered By: Emmanuel Kim on 09-13-2024 Eosinophils/100 WBC (Bld) 2.5 % 0-5 [facility] Erythrocyte distribution wid th ratioOrdered By: Emmanuel Kim on 09-13-2024 Erythrocyte distribution width (RBC) [Ratio] 13.9 % 11.6-14.6 [facility] Erythrocyte distribution wid th standard deviationOrdered By: Emmanuel Kim on 09-13-2024 Erythrocyte distribution width (RBC) [Ratio] 40.9 fl 35.1-43.9 [facility] Glomerular filtration rate ( GFR) estimationOrdered By: Emmanuel Kim on 09-13-2024 GFR/1.73 sq M.predicted among non-blacks MDRD (S/P/Bld) [Vol rate/Area] 73 mL/min/{1.73_m2} >60 [facility] Comment on above: Non- GFR Calc Glucose measurementOrdered B y: Emmanuel Kim on 09-13-2024 Glucose [Mass/Vol] 195 mg/dL High 74-106 [facility] Comment on above: Fasting Glucose resu lt greater than or equal to 126 mg/dL suggests DIABETES MELLITUS per A.D.A. criteria. Hematocrit Auto (Bld) [Volum e fraction]Ordered By: Emmanuel Kim on 09-13-2024 Hematocrit (Bld) [Volume fraction] 45.1 % 37-47 [facility] Hemoglobin A1c percentageOrd ered By: Emmanuel Kim on 09-13-2024 HbA1c (Bld) [Mass fraction] 8.1 % High 3.8-5.6 [facility] Comment on above: Normal < 5.7 % Predi abetic 5.7 - 6.4 % Diabetic >or= 6.5 % Please note range changes. Hemoglobin measurementOrdere d By: Emmanuel Kim on 09-13-2024 Hemoglobin (Bld) [Mass/Vol] 14.1 g/dL 12.0-15.0 [facility] High density lipoprotein (HD L) measurementOrdered By: Emmanuel Kim on 09-13-2024 Cholesterol in HDL [Mass/Vol] 62 mg/dL >40 [facility] Comment on above: The drugs N-Acetylcy steine and Metamizole may falsely depress this assay. Reference Range HDL <40 mg/dL Low HDL Cholesterol HDL >or= 60 mg/dL High HDL Cholesterol Immature granulocytes/100 WB C Auto (Bld)Ordered By: Emmanuel Kim on 09-13-2024 Immature granulocytes/100 WBC (Bld) 0.200 % 0.0-0.9 [facility] Comment on above: IG% - Immature Granu locytes (promyelocytes, myelocytes and metamyelocytes) > 1% indicates that a LEFT SHIFT is Present. Internal Medicine Office Vis itolidia 09-13-2024 Internal Medicine Office Visit [facility] [address] [place] [address] [place] [address] OFFICE VISIT Date of Service: 09/13/24 MR#: [id number] Acct: [id number] Name: DICKSON CHRIS Rep #: [id number] : 1965 Provider: DAYSI Polo Age/Sex: 59/F Location: [facility] Status: Signed Intake Vital Signs 08/11/24 08:56 09/13/24 07:33 Height 5 ft 2 in 5 ft 2 in Weight: 307 lb 305 lb 4 oz BMI 56.1 55.8 BP 160/98 H 164/92 H Blood Pressure Location Lt brachial Lt brachial Position Sitting Sitting Respiration 16 20 H Pulse 89 78 Pulse Source Monitor Monitor Temp 98.1 F 96.1 F L Temp Source Temporal Temporal Pulse Oximetry (%) 98 94 Oxygen Delivery Method room air room air Intake Visit Reasons: 3 WK FU Chief Complaint: follow up Saxophone Assembler Required: No Accompanied by: Self Is patient in pain?: No Allergies codeine Allergy (Mild, Verified 09/13/24 07:27) Shortness of breath Medications ???Medication ???Instructions ???Recorded ???Confirmed ???Type valsartan 160 1 tab PO QDAY #30 tabs 09/13/24 Rx mg-hydrochlorothiaz panda 12.5 mg tablet Have you fallen in the past year?: No PFSH Medical History Post-menopausal Wears glasses Migraine headache Seizures Non-smoker Shortness of breath on exertion Leg cramps History of edema Eclampsia Shingles Hay fever Hypertension Surgical History Hx of colonoscopy History of tonsillectomy and adenoidectomy History of cholecystectomy History of section Family History Aunt Breast cancer Grandmother Heart disease Ovarian cancer Grandfather Heart disease Grandfather Heart disease Father Hypertension Mother Hypertension Social History adopted: Yes household members: spouse number of children: 1 current occupational status: employed current occupation: works for the [employer] ( job and family) current occupational exposures/hazards: No pets and animals: Yes history of recent travel: Yes out of state: Yes sexually active: Yes Smoking Status: Never smoker Electronic Cigarette Use: not used alcohol intake: never substance use type: does not use caffeine: Yes seatbelt use: always do you feel safe at home: Yes additional social history: Spouse - Khris warehouse operations associate HPI HPI Chief Complaint: follow up Details: DCIKSON CHRIS, is a 59 F who presents to the office today for recheck of her BP. She states that she has been monitoring this at home (not every night). She states that there has been improvement in her numbers typically with the systolic number being in the 150s and the bottom number in the low 90s occasionally in the 80s. She states that she has not had any dizziness with this medication and has tolerated it just fine. She has been trying to do a lot of walking at work at her lunch. She has been drinking more water. ROS Const Constitutional: No body ache, excessive sweating, fatigue, fever(s), frequent falls, headache(s), snoring, weakness, weight change, sleep problems or change in appetite Eyes Eyes: No blurry vision, change in vision, eye pain or Light sensitivity ENT ENT: No abnormal hearing, ear or mastoid pain, tinnitus, nasal congestion, headache(s), neck pain or sore throat Resp Respiratory: No cough, shortness of breath, snoring or wheezing Cardio Cardiology: No chest pain at rest, chest pain with exertion, excessive sweating, shortness of breath, dyspnea on exertion, lightheadedness, orthopnea or palpitations Gastro GI: No abdominal pain, change in bowel habits, constipation, cramping, diarrhea, nausea/dyspepsia or vomiting Genitourinary-Femal e: No burning urination, painful urination, urinary incontinence, urinary frequency, blood in urine, abnormal periods or pelvic pain Musc Musculoskeletal: No abnormal gait, joint pain, back pain, limited range of motion, neck pain, numbness, stiffness, tingling or Arthritis Skin Skin: No dry skin, redness, lesions, itchy eyes, rash or wounds Neuro Neurology: No abnormal gait, abnormal hearing, abnormal speech, dizziness, weakness, frequent falls, headache(s), memory loss, numbness or tingling Psych Psychiatric: No anxiety, No change in appetite, No depression, No memory loss and No Thoughts of harming yourself/Others Endo Endocrine: No cold intolerance, excessive sweating, fatigue, flushing, heat intolerance, increased thirst/drinking, increased hunger or weight change Aller/Imm Allergy/Immunologic : No itchy eyes, seasonal allergy symptoms, hives or wheezing Joselito/Lymp Hematologic/Lymphat ic: No easy bleeding, easy bruising or enlarged lymph nodes (more content not included)... Normal [facility] Laboratory - Chemistry and C hemistry - challengeOrdered By: Emmanuel Kim on 09-13-2024 AST [Catalytic activity/Vol] 23 U/L 15-37 [facility] Lipid Profileon 09-13-2024 Cholesterol [Mass/Vol] 179 mg/dL Normal 200 [facility] Comment on above: Result Comment: <200 mg/dL Desirable 200-240 mg/dL Borderline >240 mg/dL High Risk Performed By: #### L 500.4050, L100.0100, L500.4100 ####[facility] [id number] [place], [address] Cholesterol in HDL [Mass/Vol] 62 mg/dL Normal [facility] Comment on above: Result Comment: The drugs N-Acetylcysteine and Metamizole may falsely depress this assay. Reference Range HDL <40 mg/dL Low HDL Cholesterol HDL >or= 60 mg/dL High HDL Cholesterol Performed By: #### L 500.4050, L100.0100, L500.4100 ####[facility] [id number] [place], [address] Cholesterol in LDL [Mass/Vol] 103 mg/dL Normal 0-130 [facility] Comment on above: Performed By: #### L 500.4050, L100.0100, L500.4100 ####[facility] [address] [place], [address] Cholesterol in VLDL [Mass/Vol] 14 mg/dL Normal 5-40 [facility] Comment on above: Performed By: #### L 500.4050, L100.0100, L500.4100 ####[facility] [id number] [place], [address] Triglyceride [Mass/Vol] 71 mg/dL Normal [facility] Comment on above: Result Comment: The drugs N-Acetylcysteine and Metamizole may falsely depress this assay. Serum Triglycerides Reference Interval Normal <150 mg/dL Borderline high 150 - 199 mg/dL High 200 - 499 mg/dL Very High > or = 500 mg/dL Performed By: #### L 500.4050, L100.0100, L500.4100 ####[facility] [id number] [place], [address] Low density lipoprotein (LDL ) cholesterol measurementOrdered By: Emmanuel Kim on 09-13-2024 Cholesterol in LDL [Mass/Vol] 103 mg/dL 0-130 [facility] MCV (mean corpuscular volume ) determinationOrdered By: Emmanuel Kim on 09-13-2024 MCV (RBC) [Entitic vol] 81.3 fL 81-99 [facility] Mean corpuscular hemoglobin (MCH) determinationOrdered By: Emmanuel Kim on 09-13-2024 MCH (RBC) [Entitic mass] 25.4 pg Low 27.0-32.0 [facility] Mean corpuscular hemoglobin concentration (MCHC) determinationOrdered By: Emmanuel Kim on 09-13-2024 MCHC (RBC) [Mass/Vol] 31.3 g/dL Low 32-36 [facility] Mean platelet volume determi nationOrdered By: Emmanuel Kim on 09-13-2024 Platelet mean volume (Bld) [Entitic vol] 11.4 fL 6.2-12.0 [facility] Monocyte percentageOrdered B y: Emmanuel Kim on 09-13-2024 Monocytes/100 WBC (Bld) 6.2 % 0-10 [facility] Neutrophil percentageOrdered By: Emmanuel Kim on 09-13-2024 Neutrophils/100 WBC (Bld) 62.9 % 47-70 [facility] Nucleated red blood cell per centageOrdered By: Emmanuel Kim on 09-13-2024 Nucleated RBC/100 WBC (Bld) [Ratio] 0 % 0-5 [facility] Platelet countOrdered By: Brina Kim on 09-13-2024 Platelets (Bld) [#/Vol] 293 10*3/uL 150-450 [facility] Potassium measurementOrdered By: Emmanuel Kim on 09-13-2024 Potassium [Moles/Vol] 4.0 mmol/L 3.5-5.1 [facility] RBC Auto (Bld) [#/Vol]Ordere d By: Emmanuel Kim on 09-13-2024 RBC (Bld) [#/Vol] 5.55 10*6/uL High 4.2-5.4 [facility] Serum anion gap measurementO rdered By: Emmanuel Kim on 09-13-2024 Anion gap [Moles/Vol] 8 mmol/L 5-15 [facility] Serum globulin measurementOr dered By: Emmanuel Kim on 09-13-2024 Globulin (S) [Mass/Vol] 3.5 g/dL 2.2-4.2 [facility] Serum or plasma alanine triana otransferase (ALT) measurementOrdered By: Emmanuel Kim on 09-13-2024 ALT [Catalytic activity/Vol] 53 U/L 13-56 [facility] Serum or plasma albumin corey urement (mass/volume)Ordered By: Emmanuel Kim on 09-13-2024 Albumin [Mass/Vol] 3.7 g/dL 3.2-5.0 [facility] Serum or plasma alkaline ena sphatase measurementOrdered By: Emmanuel iKm on 09-13-2024 ALP [Catalytic activity/Vol] 140 U/L High 45-117 [facility] Serum or plasma calcium corey urement (mass/volume)Ordered By: Emmanuel Kim on 09-13-2024 Calcium [Mass/Vol] 9.1 mg/dL 8.5-10.1 [facility] Serum or plasma cholesterol measurement (mass/volume)Ordered By: Emmanuel Kim on 09-13-2024 Cholesterol [Mass/Vol] 179 mg/dL <200 [facility] Comment on above: <200 mg/dL Desirable 200-240 mg/dL Borderline >240 mg/dL High Risk Serum or plasma creatinine m easurement (mass/volume)Ordered By: Emmanuel Kim on 09-13-2024 Creatinine [Mass/Vol] 0.85 mg/dL 0.55-1.02 [facility] Comment on above: The validity of the calculated GFR & GFRAA in patients over 70 years has not been determined. Clinical correlation is essential. Serum or plasma urea nitroge n measurement (mass/volume)Ordered By: Emmanuel Kim on 09-13-2024 Urea nitrogen [Mass/Vol] 20 mg/dL High 7-18 [facility] Sodium levelOrdered By: Grady Kim on 09-13-2024 Sodium [Moles/Vol] 136 mmol/L 136-145 [facility] Total proteinOrdered By: Tay Kim on 09-13-2024 Protein [Mass/Vol] 7.2 g/dL 6.4-8.2 [facility] Triglycerides measurementOrd ered By: Emamnuel Kim on 09-13-2024 Triglyceride [Mass/Vol] 71 mg/dL <199 [facility] Comment on above: The drugs N-Acetylcy steine and Metamizole may falsely depress this assay.Serum Triglycerides Reference Interval Normal <150 mg/dL Borderline high 150 - 199 mg/dL High 200 - 499 mg/dL Very High > or = 500 mg/dL Very low density lipoprotein (VLDL) cholesterol measurementOrdered By: Emmanuel Kim on 09-13-2024 Very low density lipoprotein (VLDL) cholesterol measurement 14 mg/dL 5-40 [facility] White blood cell (WBC) count Ordered By: Emmanuel Kim on 09-13-2024 WBC (Bld) [#/Vol] 5.5 10*3/uL 4.4-11.0 [facility] Internal Medicine Office Vis iton 08-11-2024 Internal Medicine Office Visit [facility] [address] [place] [address] [place] [address] OFFICE VISIT Date of Service: 08/11/24 MR#: [id number] Acct: [id number] Name: DICKSON CHRIS Rep #: [id number] : 1965 Provider: DAYSI Polo Age/Sex: 59/F Location: [facility] Status: Signed Intake Vital Signs 07/21/24 08:55 08/11/24 08:56 Height 5 ft 2 in 5 ft 2 in Weight: 307 lb BMI 56.1 BP 160/98 H Blood Pressure Location Lt brachial Position Sitting Respiration 16 Pulse 89 Pulse Source Monitor Temp 98.1 F Temp Source Temporal Pulse Oximetry (%) 98 Oxygen Delivery Method room air Intake Visit Reasons: ACUTE BP ISSUES-EST WITH OLEGHE Chief Complaint: est care Saxophone Assembler Required: No Accompanied by: Self Is patient in pain?: No Allergies codeine Allergy (Mild, Verified 08/11/24 08:52) Shortness of breath Medications ???Medication ???Instructions ???Recorded ???Confirmed ???Type valsartan 80 1 tab PO QDAY #30 tabs 08/11/24 08/11/24 Rx mg-hydrochlorothiaz panda 12.5 mg tablet PFSH Medical History Post-menopausal Wears glasses Migraine headache Seizures Non-smoker Shortness of breath on exertion Leg cramps History of edema Eclampsia Shingles Hay fever Hypertension Surgical History Hx of colonoscopy History of tonsillectomy and adenoidectomy History of cholecystectomy History of section Family History (Updated 08/11/24 @ 09:01 by Faith Padilla MA) Aunt Breast cancer Grandmother Heart disease Ovarian cancer Grandfather Heart disease Grandfather Heart disease Father Hypertension Mother Hypertension Social History (Updated 08/11/24 @ 08:56 by Faith Padilla MA) adopted: Yes household members: spouse number of children: 1 current occupational status: employed current occupation: works for the [employer] ( job and family) current occupational exposures/hazards: No pets and animals: Yes history of recent travel: Yes out of state: Yes sexually active: Yes Smoking Status: Never smoker Electronic Cigarette Use: not used alcohol intake: never substance use type: does not use caffeine: Yes seatbelt use: always do you feel safe at home: Yes additional social history: Spouse - Khris warehouse operations associate HPI HPI Chief Complaint: est care Details: DICKSON CHRIS, is a 59 F who presents to the office today for BP issues. Patient was started on medications about 5 years ago after moving up here. She states that there is no real family history that she is aware of. She states that she knows her weight has gone up over the years and she does not do any type of exercise / physical activity. She states that she was previously on medication but that it didn't seem to help control the numbers. They doubled it a year ago and she felt dizzy on the meds and it didn't help the numbers at all and thus she stopped. She does not use nicotine She only drinks one small cup of coffee in the morning and small sweet tea sometimes She does drink water but states that she goes in spurts ROS Const Constitutional: Positive for abnormal sleep pattern; No body ache, chills, excessive sweating, fatigue, fever(s), frequent falls, headache(s), snoring, weakness or change in appetite Eyes Eyes: No blurry vision, change in vision, eye pain or Light sensitivity ENT ENT: No abnormal hearing, ear or mastoid pain, tinnitus, nasal congestion, headache(s), neck pain or sore throat Resp Respiratory: No cough, shortness of breath, snoring or wheezing Cardio Cardiology: No chest pain at rest, chest pain with exertion, excessive sweating, dyspnea on exertion, lightheadedness, orthopnea or palpitations Gastro GI: No abdominal pain, change in bowel habits, constipation, cramping, diarrhea, nausea/dyspepsia or vomiting Genitourinary-Femal e: No burning urination, painful urination, urinary incontinence or urinary frequency Musc Musculoskeletal: No abnormal gait, joint pain, back pain, limited range of motion, muscle weakness, neck pain or numbness Skin Skin: No dry skin, redness, lesions, itchy eyes, rash or wounds Neuro Neurology: No abnormal gait, abnormal hearing, weakness, frequent falls, headache(s), memory loss or numbness Psych Psychiatric: Positive for abnormal sleep pattern, No anxiety, No change in appetite, No depression, No memory loss and No Thoughts of harming yourself/Others Endo Endocrine: No cold intolerance, excessive sweating, fatigue, flushing, heat intolerance, increased thirst/drinking or increased hunger Aller/Imm Allergy/Immunologic : No itchy eyes, seasonal allergy symptoms, hives or wheezing Joselito/Lymp Hematologic/Lymphat ic: No easy bleeding or easy bruising Exam (more content not included)... Normal [facility] Applications Engineering Manager Office Visit Reporton 07-21-2024 Applications Engineering Manager Office Visit Report [facility] [address], [address] [place] [address] OFFICE VISIT Date of Service: 07/21/24 MR#: [id number] Acct: [id number] Name: DICKSON CHRIS Rep #: [id number] : 1965 Provider: WILFRED Greco ams Age/Sex: 59/F Location: [facility] Status: Signed Intake Vital Signs 06/21/23 14:48 09/27/23 08:18 07/21/24 08:05 07/21/24 08:09 Height 5 ft 2 in 5 ft 2 in 5 ft 2 in 5 ft 2 in Weight: 310 lb BMI 56.7 BP 190/119 H 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: No Is patient in pain?: No Allergies codeine Allergy (Mild, Verified 07/21/24 08:06) Shortness of breath Is last menstrual period known: No Post menopausal: Yes Patient : No : No PFSH Medical History Post-menopausal Wears glasses Migraine headache Seizures Non-smoker Shortness of breath on exertion Leg cramps History of edema Eclampsia Shingles Hay fever Hypertension Surgical History Hx of colonoscopy History of tonsillectomy and adenoidectomy History of cholecystectomy History of section Family History Aunt Breast cancer Grandmother Heart disease Ovarian cancer Grandfather Heart disease Grandfather Heart disease Other Hypertension Social History adopted: Yes household members: spouse number of children: 1 current occupational status: employed current occupation: works for the [employer] current occupational exposures/hazards: No pets and animals: Yes history of recent travel: Yes out of state: Yes sexually active: Yes Smoking Status: Never smoker Electronic Cigarette Use: not used alcohol intake: never substance use type: does not use caffeine: Yes seatbelt use: always do you feel safe at home: Yes additional social history: Spouse - Khris warehouse operations associate HPI Encounter for routine gynecological examination Details: DICKSON CHRIS is a 59 year old who presents for annual exam. DIscussed hypertension with her and importance of controlling blood pressure. will call technical sales representative as soon as she leaves appt to get follow up. Recommended ER and pt declines. Last PAP: 2021 History of abnormal PAP: Last mammogram: 07/2024 History of abnormal mammogram: Colon cancer screenin Other preventative health care screenings: BIM, was seeing Dr. Zee, no screening lab by PCP. Female Reproductive History Questions: metorrhagia: No, sexually active: Yes, dyspareunia: No and PCB: No Menopausal Symptoms: No hot flashes, Yes night sweats, No weight change, No mood changes, No difficulty concentrating, No sleep problems and No change in libido ROS Const Constitutional: Reports system reviewed and no additional complaints, except as documented and night sweats Cardio Card: Reports system reviewed and no additional complaints, except as documented Resp Resp: Reports system reviewed and no additional complaints, except as documented GI GI: Reports system reviewed and no additional complaints, except as documented : Reports system reviewed and no additional complaints, except as documented; Denies difficulty voiding, dysuria, hot flashes or urinary frequency Skin Skin/Breast: Reports system reviewed and no additional complaints, except as documented Neuro Neuro: Reports system reviewed and no additional complaints, except as documented Psych Psych: Reports system reviewed and no additional complaints, except as documented; Denies anhedonia, anxiety, change in libido, depression or difficulty concentrating Exam Const General: cooperative, healthy appearing, comfortable and no acute distress Orientation: alert, awake and oriented x3 Neck Neck: normal visual inspection and full ROM Thyroid: thyroid normal Chest Breast inspection: normal inspection of the breasts and normal inspection of the axillae Breast palpation: normal palpation of the breasts and normal palpation of the axillae Resp Effort Inspection: normal respiratory effort, able to speak in complete sentences and symmetric chest movement GI Inspection: normal to inspection Palpation: soft Rectal Exam: visual inspection normal External Female Exam: normal external appearance and normal appearance of the urethra Urethra: normal appearance of the urethra Speculum Exam - Vagina: normal appearance of the vagina and normal vaginal discharge Speculum Exam - Cervix: normal appearance of the cervix and nontender Bimanual Exam- Vagina Uterus: normal bimanual exam, normal palpation, uterine size normal, No tender and non-tender Bimanual Exam- Adnexa, other: normal Pelvic Support: normal Skin (more content not included)... Normal [facility] SCRN MAMM (CAD)W/JAIDENJanice Hunt n 07-19-2024 SCRN MAMM (CAD)W/JAIDENJanice [facility] Services [address] [place], [place] [id number] SCRN MAMM (CAD)W/JAIDEN CARSON MR#: [id number] Acct: [id number] Name: DICKSON CHRIS Rep #: [id number] : 1965 F 59 From: Phillip richardson MD PCP: Dr. Ene Zee MD Status: REG [facility] Study: SCRN MAMM (CAD)W/JAIDEN BILAT Date of Exam: 07/09 09/01 Exam# [id number] Ordering Dr: Nitza Cunningham -[id number] MAMMOGRAPHY - BILATERAL SCREENING REASON FOR EXAM: Female, 59 years old. Routine annual screening examination. PERTINENT HISTORY: Mother with breast cancer. Aunt with breast cancer. TECHNIQUE: Digital bilateral breast jaiden (3D mammographic acquisition) in the CC and MLO projections. 2-D mediolateral oblique (MLO) and craniocaudad (CC) views of both breasts were obtained. CAD: Full Field Digital Mammography with Computer Added Detection was performed. COMPARISON: Comparison is made with prior study dated June 30, 2023. FINDINGS: Breast Composition: The breasts are heterogeneously dense, which may obscure small masses. There are no dominant masses or suspicious calcifications. Stable 6.3 mm x 3 mm well-defined nodule in the deep central lateral aspect of the left breast. This was demonstrated to be a small lymph node on prior sonogram. No other significant abnormalities are identified. There has been no significant change since the prior study. BI/SCRN MAMM (CAD)W/JAIDEN BILAT IMPRESSION: Stable bilateral screening mammogram. Yearly follow-up mammogram recommended. (A) ASSESSMENT CATEGORY: BIRADS Category 2: Benign. A letter regarding these results will be sent to the patient by the facility within 30 days. Approximately 10% of breast cancers are not detected by mammography. A normal mammogram should not delay biopsy of a clinically suspicious abnormality. [id number] Electronically Signed: Phillip Guerrero MD at 15:02 EST , CC: Dr. Ene Zee MD; Dr. Nitza Cunningham MD Contracting Engineer: Signed Normal [facility] CORONAVIRUS PCR [CCL]on 07-10 SEND TO IC? YES Normal [facility] Comment on above: Performed By: #### 2 [id number] #### [facility],[address] [place] [id number] COVID 19 Result CHIEF CLERK Negative Normal [facility] Comment on above: Result Comment: Nega tive for COVID19 (SARS CoV2) by PCR. This test was developed and its performance characteristics determined by [facility] [place]. This test has been authorized by FDA under an Emergency Use Authorization (EUA). This test has been validated in accordance with the FDA's Guidance Document Policy for Diagnostics Testing in Laboratories Certified to Perform High Complexity Testing under CLIA prior to Emergency use Authorization for Coronavirus Disease 2019 during the Public Health Emergency issued on October 07, 2019. [facility] [address] [place] [address] Vishnu Avina III, M.D. [id number] Performed By: #### 2 [id number] #### [address] [address] COVID 19 Source CHIEF CLERK Nasopharyngeal Swab Normal [facility] Comment on above: Result Comment: Miguel ected on 07/28 AT 0050: Previously reported as CHIEF CLERK SWAB Performed By: #### 2 [id number] #### [facility],[address] [place] [id number] Coronavirus 2019on 0 COVID 19 Result CHIEF CLERK Normal Negative for COVID19 (SARS CoV2) by PCR. [facility] Comment on above: Result Comment: Nega tive for This test was developed and its performance characteristics determined by [facility] [place]. This test has been authorized by FDA under an Emergency Use Authorization (EUA). This test has been validated in accordance with the FDA's Guidance Document Policy for Diagnostics Testing in Laboratories Certified to Perform High Complexity Testing under CLIA prior to Emergency use Authorization for Coronavirus Disease 2019 during the Public Health Emergency issued on October 07, 2019. COVID19 (SARS This test was developed and its performance characteristics determined by [facility] [place]. This test has been authorized by FDA under an Emergency Use Authorization (EUA). This test has been validated in accordance with the FDA's Guidance Document Policy for Diagnostics Testing in Laboratories Certified to Perform High Complexity Testing under CLIA prior to Emergency use Authorization for Coronavirus Disease 2019 during the Public Health Emergency issued on October 07, 2019. CoV2) by PCR. This test was developed and its performance characteristics determined by [facility] [place]. This test has been authorized by FDA under an Emergency Use Authorization (EUA). This test has been validated in accordance with the FDA's Guidance Document Policy for Diagnostics Testing in Laboratories Certified to Perform High Complexity Testing under CLIA prior to Emergency use Authorization for Coronavirus Disease 2019 during the Public Health Emergency issued on October 07, 2019. Performed By: #### C OVID #### [facility] Routine Lab [address] [place], [place] [id number] COVID 19 Source CHIEF CLERK Normal [facility] Comment on above: Result Comment: Naso pharyngeal Corrected on 07/28 AT 0050: Previously reported as CHIEF CLERK SWAB Swab Corrected on 07/28 AT 0050: Previously reported as CHIEF CLERK SWAB Performed By: #### C OVID #### [facility] Routine Lab [address] [place], [place] [id number] Vital Signs Date Time Vital Sign Value Performing Clinician Harshal reyes 04-18-2025 14:40-0400 Body height 157.[address] Ene Zee MD Work Phone: [facility] 04-18-2025 14:40-0400 Body mass index (BMI) [Ratio] 55 kg/m2 Dr. Ene Zee MD Work Phone: [facility] 04-18-2025 14:40-0400 Body temperature 97.5 [degF] Dr. Ene Zee MD Work Phone: [facility] 04-18-2025 14:40-0400 Body weight 136.[address] Ene Zee MD Work Phone: [facility] 04-18-2025 14:40-0400 Diastolic blood pressure 64 mm[Hg] Dr. Ene Zee MD Work Phone: [facility] 04-18-2025 14:40-0400 Heart rate 84 /min Dr. Ene Zee MD Work Phone: [facility] 04-18-2025 14:40-0400 Respiratory rate 18 /min Dr. Ene Zee MD Work Phone: [facility] 04-18-2025 14:40-0400 SaO2% (BldA) [Mass fraction] 96 % Dr. Ene Zee MD Work Phone: [facility] 04-18-2025 14:40-0400 Systolic blood pressure 128 mm[Hg] Dr. Ene Zee MD Work Phone: [facility] 01-11-2025 16:37-0400 Body height 157.[address] Ene Zee MD Work Phone: [facility] 01-11-2025 16:37-0400 Body mass index (BMI) [Ratio] 54.3 kg/m2 Dr. Ene Zee MD Work Phone: [facility] 01-11-2025 16:37-0400 Body temperature 97 [degF] Dr. Ene Zee MD Work Phone: [facility] 01-11-2025 16:37-0400 Body weight 134.[address] Ene Zee MD Work Phone: [facility] 01-11-2025 16:37-0400 Diastolic blood pressure 84 mm[Hg] Dr. Ene Zee MD Work Phone: [facility] 01-11-2025 16:37-0400 Heart rate 78 /min Dr. Ene Zee MD Work Phone: [facility] 01-11-2025 16:37-0400 Respiratory rate 14 /min Dr. Ene Zee MD Work Phone: [facility] 01-11-2025 16:37-0400 SaO2% (BldA) [Mass fraction] 98 % Dr. Ene Zee MD Work Phone: [facility] 01-11-2025 16:37-0400 Systolic blood pressure 132 mm[Hg] Dr. Ene Zee MD Work Phone: [facility] 11-13-2024 08:11-0400 Diastolic blood pressure 88 mm[Hg] Dr. Ene Zee MD Work Phone: [facility] 11-13-2024 08:11-0400 Systolic blood pressure 142 mm[Hg] Dr. Ene Zee MD Work Phone: [facility] 11-13-2024 08:05-0400 Heart rate 67 /min Dr. Ene Zee MD Work Phone: [facility] 09-13-2024 07:33-0500 Body mass index (BMI) [Ratio] 55.8 kg/m2 Dr. Ene Zee MD Work Phone: [facility] 09-13-2024 07:33-0500 Body temperature 96.1 [degF] Dr. Ene Zee MD Work Phone: [facility] 09-13-2024 07:33-0500 Body weight 138.[address] Ene Zee MD Work Phone: [facility] 09-13-2024 07:33-0500 Diastolic blood pressure 92 mm[Hg] Dr. Ene Zee MD Work Phone: [facility] 09-13-2024 07:33-0500 Heart rate 78 /min Dr. Ene Zee MD Work Phone: [facility] 09-13-2024 07:33-0500 Respiratory rate 20 /min Dr. Ene Zee MD Work Phone: [facility] 09-13-2024 07:33-0500 SaO2% (BldA) [Mass fraction] 94 % Dr. Ene Zee MD Work Phone: [facility] 09-13-2024 07:33-0500 Systolic blood pressure 164 mm[Hg] Dr. Ene Zee MD Work Phone: [facility] 09-27-2023 10:29-0500 Body temperature 97.2 [degF] Dr. Ene Zee Work Phone: [facility] 09-27-2023 10:29-0500 Diastolic blood pressure 87 mm[Hg] Dr. Ene Zee Work Phone: [facility] 09-27-2023 10:29-0500 Heart rate 73 /min Dr. Ene Zee Work Phone: [facility] 09-27-2023 10:29-0500 Respiratory rate 20 /min Dr. Ene Zee Work Phone: [facility] 09-27-2023 10:29-0500 SaO2% (BldA) [Mass fraction] 97 % Dr. Ene Zee Work Phone: [facility] 09-27-2023 10:29-0500 Systolic blood pressure 144 mm[Hg] Dr. Ene Zee Work Phone: [facility] 09-27-2023 08:18-0500 Body height 157.[address] Ene Zee Work Phone: [facility] 09-27-2023 08:18-0500 Body mass index (BMI) [Ratio] 57.2 kg/m2 Dr. Ene Zee Work Phone: [facility] 09-27-2023 08:18-0500 Body weight 141.[address] Ene Zee Work Phone: [facility] 08-16-2023 12:41-0500 Diastolic blood pressure 98 mm[Hg] Dr. Ene Zee Work Phone: [facility] 08-16-2023 12:41-0500 Systolic blood pressure 152 mm[Hg] Dr. Ene Zee Work Phone: [facility] 08-16-2023 09:46-0500 Body mass index (BMI) [Ratio] 56.9 kg/m2 Dr. Ene Zee Work Phone: [facility] 08-16-2023 09:46-0500 Body temperature 97.7 [degF] Dr. Ene Zee Work Phone: [facility] 08-16-2023 09:46-0500 Body weight 141.[address] Ene Zee Work Phone: [facility] 08-16-2023 09:46-0500 Heart rate 79 /min Dr. Ene Zee Work Phone: [facility] 08-16-2023 09:46-0500 Respiratory rate 16 /min Dr. Ene Zee Work Phone: [facility] 08-16-2023 09:46-0500 SaO2% (BldA) [Mass fraction] 98 % Dr. Ene Zee Work Phone: [facility] 08-05-2023 09:39-0500 Body mass index (BMI) [Ratio] 56.7 kg/m2 Dr. Ene Zee Work Phone: [facility] 08-05-2023 09:39-0500 Body weight 140.[address] Ene Zee Work Phone: [facility] 06-21-2023 14:37-0500 Body mass index (BMI) [Ratio] 56.7 kg/m2 Dr. Nitza Cunningham Work Phone: [facility] 06-21-2023 14:37-0500 Body weight 140.[address] Nitza Cunningham Work Phone: [facility] 06-21-2023 14:37-0500 Diastolic blood pressure 111 mm[Hg] Dr. Nitza Cunningham Work Phone: [facility] 06-21-2023 14:37-0500 Systolic blood pressure 178 mm[Hg] Dr. Nitza Cunningham Work Phone: [facility] Encounters Encounter Date Encounter Type Care Provider Facility Start: 04-19-2025 End: 04-19-[address] Ene Zee MD Work Phone: [facility] Start: 04-19-2025 End: 04-19-[address] Ene Zee MD [facility] Start: 04-18-2025 End: 04-18-[address] Payal De La O MD -[facility] Work Phone: Start: 04-18-2025 End: 04-19-[address] Ene Zee MD Work Phone: -[facility] Start: 04-18-2025 End: 04-18-2025 ambulatory Ene Zee Facility:[facility] Start: 01-11-2025 End: 01-11-[address] Payal De La O MD [facility] Work Phone: Start: 01-11-2025 End: 01-11-[address] Ene Zee MD Work Phone: [facility] Work Phone: Start: 11-13-2024 End: 11-13-[address] Ene Zee MD -[facility] Work Phone: Start: 11-13-2024 End: 11-13-2024 ambulatory Ene Zee Facility:[facility] Start: 10-09-2024 ambulatory Ene Zee Facility :[facility] Start: 09-27-2024 Encounter for genera l adult medical examination without abnormal findings Emmanuel TAVAREZ [facility] Start: 09-13-2024 End: 09-13-2024 Patient encounter procedure Emmanuel TAVAREZ -[facility] Work Phone: Start: 09-13-2024 End: 09-13-2024 ambulatory Ene Zee Facility:[facility] Start: 09-13-2024 End: 09-13-2024 ambulatory Ene Bailonlay Facility:[facility] Start: 08-11-[address] Elis Zee MD Work Phone: [facility] Start: 08-11-2024 End: 08-11-2024 ambulatory Ene Zee Facility:[facility] Start: 07-21-2024 Encounter for gynecological examination (general) (routine) without abnormal findings Terri Munroe [facility] Start: 07-21-2024 End: 07-21-2024 ambulatory Terri Munroe Facility:[facility] Start: 07-19-2024 End: 07-19-2024 ambulatory Ene Zee Facility:[facility] Start: 09-27-2023 Non-patient / Non-visit Dr. Curtis Work Phone: [facility] Start: 09-27-2023 End: 09-27-2023 Admission to same day surgery center Dr. Ene Zee Work Phone: [facility]-Endoscopy Work Phone: Start: 09-27-2023 End: 09-27-[address] Ene Zee Work Phone: [facility] Work Phone: Start: 08-16-2023 End: 08-16-[address] Ene Zee Work Phone: [facility] Work Phone: Start: 08-05-2023 Non-patient / Non-visit Dr. Curtis Work Phone: [facility] Work Phone: Start: 07-13-2023 End: 07-13-[address] Nitza Cunningham Work Phone: [facility] Work Phone: Start: 07-13-2023 End: 07-13-[address] Nitza Cunningham Work Phone: [facility]patient [facility] Ultrasound Work Phone: Start: 06-30-2023 End: 06-30-[address] Nitza Cunningham Work Phone: [facility] Work Phone: Start: 06-30-2023 End: 06-30-[address] Nitza Cunningham Work Phone: [facility]-Outpatient Breast Imaging Work Phone: Start: 06-21-2023 End: 06-21-[address] Nitza Cunningham Work Phone: [facility] Work Phone: Start: 07-26-2020 End: 07-26-2020 Patient encounter procedure ALVA AYERS [facility] Procedures Date Procedure Procedure Detail Performing Clinician Start: 04-19-2025 Urine microalbumin/creatinine ratio measurement Dr. Ene Zee MD Work Phone: Start: 09-13-2024 Measurement of renal function Dr. Ene Zee MD Work Phone: Comment on above: GFR Calc Start: 09-27-[address] Ene Zee Work Phone: Start: 07-13-[address] Nitza Cunningham Work Phone: Start: 06-30-2023 Screening mammography Randi Cunningham Work Phone: Plan of Treatment Date Care Activity Detail Author Start: 04-18-2025 Comprehensive metabo lic 1999 panel - Serum or Plasma [facility] Start: 09-27-2023 Patient discharge [facility] Start: 06-30-2023 MG Breast - bilatera l Screening [facility] Start: 06-30-2023 Screening mammography SCRN JORGE A M (CAD)W/JAIDEN BILAT [facility] Start: 06-21-2023 Patient referral [facility] Work Phone: Alanine aminotransfe rase [Enzymatic activity/volume] in Serum or Plasma [facility] Albumin [Mass/volume ] in Serum or Plasma [facility] Alkaline phosphatase [Enzymatic activity/volume] in Serum or Plasma [facility] Anion gap in Serum or Plasma [facility] Bilirubin, total measurement [facility] BUN/Creatinine ratio [facility] Calcium [Mass/volume ] in Serum or Plasma [facility] Carbon dioxide, tota l [Moles/volume] in Central venous blood [facility] CBC W Auto Different ial panel - Blood [facility] Colonoscopy [facility] Comprehensive metabo lic 1999 panel - Serum or Plasma [facility] Creatinine [Mass/vol ume] in Serum or Plasma [facility] Glucose [Mass/volume ] in Serum or Plasma [facility] Hemoglobin A1c/Hemoglobin.total in Blood [facility] Lipid 1996 panel - S meagan or Plasma [facility] Measurement of renal function [facility] Patient referral [facility] Work Phone: Potassium measurement [facility] Serum chloride measurement [facility] Sodium measurement [facility] Total protein measurement [facility] Urea nitrogen [Mass/ volume] in Serum or Plasma [facility] Payers Date Payer Category Payer Unknown [id number] 2024 Self-pay [id number] 1965 Unknown [id number] Private Health Insurance [facility] [id number] Unknown [facility] PACKAGE PLAN [id number] Unknown [id number] Unknown [id number] Unknown [id number] Unknown [id number] Unknown [id number] Unknown [id number] Unknown [id number] Unknown [id number] Unknown [id number] Unknown [id number] Unknown [id number] Social History Date Type Detail Facility Start: 06-23-2023 End: 09-27-2023 Tobacco smoking status NHIS Unknown if ever smoked [facility] Start: 1965 Sex Assigned At Female [facility] Start: 01-11-2025 Tobacco smoking stat us NHIS Never smoked tobacco (finding) [facility] Gender Identity Identifies as fe male gender (finding) [facility] Sexual Orientation Heterosexual (finding) [facility] NEGATED: Highlighted row [facility] Medical Equipment Procedure Code Equipment Code Equipment Origin al Text Equipment Identifier Dates Blood Sugar Diagnostic (Freestyle Lite Strips) strip Start: 01-11-2025 Lancets (Freesty le Lancets) 28 gauge misc Start: 01-11-2025 Blood Sugar Diagnostic (Freestyle Lite Strips) strip Start: 01-11-2025 Lancets (Freesty le Lancets) 28 gauge misc Start: 01-11-2025 Blood Sugar Diagnostic (Freestyle Lite Strips) strip Start: 01-11-2025 Lancets (Freesty le Lancets) 28 gauge misc Start: 01-11-2025 Blood Sugar Diagnostic (Freestyle Lite Strips) strip Start: 01-11-2025 Lancets (Freesty le Lancets) 28 gauge misc Start: 01-11-2025 Goals Date Patient Goal Desired Activity /State Mental Status Date Assessment Result Facility 09-27-2023 Cognitive function Voice/Name;Touch/Suzanne pacheco [facility] Work Phone: Evaluation note 01-11-2025 Note Date & Type Note Facility 01-11-2025 Evaluation note Diagnosis Onset Date Resolution Essential hypertension chronic Ju 2024 4:18pm Type 2 diabetes mellitus chronic January 11, 2025 4 :18pm Sleep apnea suspected January 11 4:18pm [facility] Work Phone: Evaluation note 01-11-2025 Note Date & Type Note Facility 01-11-2025 Evaluation note Diagnosis Onset Date Resolution Essential hypertension chronic Ju 2024 4:18pm Type 2 diabetes mellitus chronic January 11, 2025 4 :18pm Sleep apnea suspected January 11 4:18pm Essential hypertension chronic Se pt2024 2:29pm Type 2 diabetes mellitus chronic April 18, 2025 2:29pm [facility] Work Phone: Evaluation note 09-13-2024 Note Date & Type Note Facility 09-13-2024 Evaluation note Diagnosis Onset Date Resolution Essential hypertension acute Fe bruary 2024 7:27am Essential hypertension acute Ap ril 2024 7:53am [facility] Work Phone: Procedure note 09-27-2023 Note Date & Type Note Facility 09-27-2023 Procedure note [facility] Procedure note 09-27-2023 Note Date & Type Note Facility 09-27-2023 Procedure note [facility] Evaluation note Note Date & Type Note Facility Evaluation note Diagnosis Onset Date Family history of ovarian cancer acute Encounter for routine gyneco logical examination noneactive [facility] Work Phone: Evaluation note Note Date & Type Note Facility Evaluation note Diagnosis Onset Date Family history of ovarian cancer acute Encounter for routine gyneco logical examination noneactive Essential hypertension acute Immunization declined noneac tive Screening for cardiovascular condition noneactive Establishing care with palomo webb, encounter for noneactive Suspected sleep apnea noneac tive Wheezing noneactive Encounter for screening for malignant neoplasm of colon resolved [facility] Work Phone: History and physical note Note Date & Type Note Facility History and physical note Note Date/Time September 27, 2023 9:40am [facility] Medical Records Department [address] [place] [address] History & Physical Exam 09/27/23 0900 MR#: [id number] Acct: [id number] Name: DICKSON CHRIS Rep #:[id number] : 1965 58 From: Connie Green MD PCP: Dr. Ene Zee MD Status:[facility] Location: [place] [id number] HPI - General General Date of Service: 09/27/23 HPI Narrative DICKSON CHRIS, is a 58 F who presents for screening colonoscopy. Patient states she had a colonoscopy 6 years ago was told to follow-up in 5 years?done in [place]. Patient states her scope was negative do not have the report. Patient denies any chronic abdominal pain/nausea/vomiting/reflux. Patient has bowel movements daily denies any blood. Patient denies any family history of colon cancer. [facility] Medical History Eclampsia Hay fever History of edema Hypertension Leg cramps Migraine headache Non-smoker Post-menopausal Seizures Shingles Shortness of breath on exertion Wears glasses Home Medications losartan 100 mg tablet 100 mg PO DAILY #30 tabs 08/16/23 [Rx Last Taken 09/27/23] Allergy/AdvReac Type Severity Reaction Status Date / Time codeine Allergy Mild Shortness Verified 09/27/23 08:17 of breath Family History Aunt Breast cancer Grandmother Heart disease Ovarian cancer Grandfather Heart disease Grandfather Heart disease Other Hypertension Surgical History History of section History of cholecystectomy History of tonsillectomy and adenoidectomy Hx of colonoscopy Social History (Updated 08/16/23 @ 10:[address] 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 Past Medical/Surgical History Planned Operation Planned Operative Procedure/s: CSCOPE OA Previous Hospitalizations/Surgeries HX Hospitalizations: No Any Problems With Anesthesia: No You/Your Family Experience Fever (Hyperthermia) With Anes: No Cholinesterase deficiency: No Cardiovascular Hx Hypertension: Yes (CONTROLLED WITH MED) Respiratory Hx Sleep Apnea: No Hx Respiratory Tract Infection/Cold (presently): No Do You Snore Loudly (louder than talking or can be heard): No Do You Often Feel Tired/ Fatigued/ Sleepy Dring Daytime?: No Has Anyone Observed You Stop Breathing During Sleep?: No Result (for STOP score): Negative Smoking Status: Never smoker Neurological Does patient have nerve stimulator: No Reproduction : No Miscellaneous Recent Exposure to Contagious Disease: No Allergies codeine Allergy (Mild, Verified 09/27/23 08:17) Shortness of breath Discharge Is Pt Admitted From a Jail, or a Intermediate: No After D/C, Where Do you Plan to Go: Return Home Vital Signs Vital Signs Vital Signs: 09/27/23 08:18 09/27/23 08:18 Temperature 98.5 F Temperature Source Temporal Pulse Rate 91 Respiratory Rate 16 Respiratory Pattern Normal Blood Pressure 184/102 H Blood Pressure Mean 129 Blood Pressure Source Monitor Blood Pressure Position Semi-Fowlers Blood Pressure Location Left Forearm Pulse Ox 94 Oxygen Delivery Method Room Air Weight Weight: 312 lb 9.848 oz Body Mass Index (BMI) 57.2 Physical Exam Const alert, oriented x3 and no apparent distress Nutritional Appearance: obese HEENT normocephalic and head/scalp atraumatic Resp normal respiratory effort Cardio regular rate GI soft to palpation and non-tender; Negative for non-distended Palpation: Negative for guarding Extremity no clubbing, cyanosis or edema Skin no rashes or lesions noted Neuro CN's II-XII intact bilaterally Psych mental status grossly normal Assessment & Plan Assessment/Plan (1) Encounter for screening for malignant neoplasm of colon: Surgery Risks - Colonoscopy I discussed with the patient the risks of the procedure: Yes Risks Include but are not Limited To: Risks include but are not limited to: Bleeding, perforation requiring further surgery, inability to complete colonoscopy requiring barium enema. 09/27/23 0940 <Electronically signed by Connie Green MD> Cosigner Signature (if applicable): CC: Dr. Ene Zee MD; Dr. Connie Green MD~ Signed [facility] Work Phone: Reason for referral (narrative) Note Date & Type Note Facility Reason for referral (narrative) No reason for referral information available [facility] Work Phone: Summary Purpose Family History Relationship Condition Age at Onset Recorded Date/T sarkis Not Specified Hypertension Unknown aunt Malignant neoplasm of breast Unknown grandmother Cardiac disease Unknown Malignant neoplasm of ovary Unknown grandfather Cardiac disease Unknown Relationship Condition Age at Onset Recorded Date/T sarkis aunt Malignant neoplasm of breast Unknown grandmother Cardiac disease Unknown Malignant neoplasm of ovary Unknown grandfather Cardiac disease Unknown mother Hypertension Unknown Advance Directives Advance Directive Response Recorded Date/ Time Living Will No September 21 024 10:40am 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 PT Reason for Visit Family history of ov alma cancer Encounter for routine gynecological examination Essential hypertension Immunization declined Screening for cardiovascular condition Establishing care with new doctor, encounter for Suspected sleep apnea Wheezing Encounter for screening for malignant neoplasm of colon Chief Complaint Admit Date 3 WK FU September 13, 2024 7 :27am BP CHECK November 13, 2024 7:53 am CHIEF CLERK. EST CARE - [facility] SENT January 11, 2025 4 :18pm Reason for Visit Admit Date Essential hypertension September 13 7:27am Essential hypertension November 13, 2024 7 :53am Chief Complaint Admit Date CHIEF CLERK. EST CARE - [facility] SENT January 11, 2025 4 :18pm 3 M FU April 18, 2025 2:29pm Reason for Visit Admit Date Essential hypertension January 11, 2025 4: 18pm Type 2 diabetes mellitus January 11, 2025 4:18pm Sleep apnea January 11, 2025 4:18p m Reason for Visit Admit Date Essential hypertension January 11, 2025 4: 18pm Type 2 diabetes mellitus January 11, 2025 4:18pm Sleep apnea January 11, 2025 4:18p m Essential hypertension April 18, 2 025 2:29pm Type 2 diabetes mellitus April 18, 2025 2:29pm Additional Source Comments INFORMATION SOURCE (unrecogn ized section and content) DATE CREATED AUTHOR 07/28/2020 [facility] DATE CREATED AUTHOR AUTHOR'S ORGANIZ ATION 08/07/2020 [facility] DATE CREATED AUTHOR AUTHOR'S ORGANIZ ATION 05/11/2025 [facility] Care Teams (unrecognized sec tion and content) Team Status: Active Member Role Status Dates Dr. Ene Zee MD Primary Care Provider Active Team Status: Inactive Member Role Status Dates Dr. Nitza Cunningham MD Attending Provider Active Team Status: Inactive Member Role Status Dates Dr. Nitza Cunningham MD Attending Provider, Referr ing Provider Active Dr. Ene Zee MD Primary Care Provider Active Team Status: Inactive Member Role Status Dates Dr. Ene Zee MD Primary Care Provider Active Nafisa Valdez CNM Attending Provider, Referring Pr boyder Active Team Status: Inactive Member Role Status Dates Dr. Ene Zee MD Primary Care Pro vider, Attending Provider, Referring Provider Active Team Status: Active Member Role Status Dates Dr. Ene Zee MD Primary Care Provider Active Latesha Guevara Attending Provider Active Team Status: Active Member Role Status Dates Dr. Ene Zee MD Primary Care Provider, Referri ng Provider Active Dr. Connie Green MD Attending Provider, Other Pro vider Active Team Status: Inactive Member Role Status Dates Dr. Ene Zee MD Primary Care Provider, Referri ng Provider Active Dr. Connie Green MD Attending Provider Active Team Status: Inactive Member Role Status Dates Dr. Ene Zee MD Primary Care Provider Active Start: September 13, 2024 End: September 13, 2024 Dr. Ene Zee MD Referring Provider Active Start: September 13, 2024 End: September 13, 2024 DAYSI Eugene Attending Provider Active St art: September 13, 2024 End: September 13, 2024 Team Status: Inactive Member Role Status Dates Dr. Ene Zee MD Primary Care Provider Active Start: September 13, 2024 End: September 13, 2024 DAYSI Eugene Attending Provider Active St art: September 13, 2024 End: September 13, 2024 DAY[facility] [place] Referring Provider Active St art: September 13, 2024 End: September 13, 2024 Team Status: Inactive Member Role Status Dates Dr. Ene Zee MD Primary Care Provider Active Start: November 13, 2024 End: November 13, 2024 Dr. Ene Zee MD Attending Provider Active Start: November 13, 2024 End: November 13, 2024 Dr. Ene Zee MD Referring Provider Active Start: November 13, 2024 End: November 13, 2024 Team Status: Inactive Member Role Status Dates Dr. Ene Zee MD Primary Care Provider Active Start: January 11, 2025 End: January 11, 2025 Dr. Ene Zee MD Referring Provider Active Start: January 11, 2025 End: January 11, 2025 Dr. Payal De La O MD Attending Provider Active Start: January 11, 2025 End: January 11, 2025 Team Status: Active Member Role/Relationship Status Dates Dr. Ene Zee MD Primary Care Provider Active Team Status: Inactive Member Role/Relationship Status Dates Dr. Ene Zee MD Primary Care Provider Active Start: January 11, 2025 End: January 11, 2025 Dr. Ene Zee MD Referring Provider Active Start: January 11, 2025 End: January 11, 2025 Dr. Payal De La O MD Attending Provider Active Start: January 11, 2025 End: January 11, 2025 Team Status: Inactive Member Role/Relationship Status Dates Dr. Ene Zee MD Primary Care Provider Active Start: April 18, 2025 End: April 18, 2025 Dr. Ene Zee MD Referring Provider Active Start: April 18, 2025 End: April 18, 2025 Dr. Payal De La O MD Attending Provider Active Start: April 18, 2025 End: April 18, 2025 Team Status: Active Member Role/Relationship Status Dates Dr. Ene Zee MD Primary Care Provider Active Start: April 18, 2025 Dr. Ene Zee MD Attending Provider Active Start: April 18, 2025 Dr. Ene Zee MD Referring Provider Active Start: April 18, 2025 Team Status: Active Member Role/Relationship Status Dates Dr. Payal De La O MD Primary care physician Activ e Team Status: Inactive Member Role/Relationship Status Dates Dr. Ene Zee MD Primary care physician Active Start: January 11, 2025 End: January 11, 2025 Dr. Ene Zee MD Referring Provider Active Start: January 11, 2025 End: January 11, 2025 Dr. Payal De La O MD Attending physician Active Start: January 11, 2025 End: January 11, 2025 Team Status: Inactive Member Role/Relationship Status Dates Dr. Ene Zee MD Primary care physician Active Start: April 18, 2025 End: April 18, 2025 Dr. Ene Zee MD Referring Provider Active Start: April 18, 2025 End: April 18, 2025 Dr. Payal De La O MD Attending physician Active Start: April 18, 2025 End: April 18, 2025 Team Status: Inactive Member Role/Relationship Status Dates Dr. Ene Zee MD Primary care physician Active Start: April 18, 2025 End: April 18, 2025 Dr. Ene Zee MD Attending physician Active Start: April 18, 2025 End: April 18, 2025 Dr. Ene Zee MD Referring Provider Active Start: April 18, 2025 End: April 18, 2025 Team Status: Inactive Member Role/Relationship Status Dates Dr. Ene Zee MD Primary care physician Active Start: April 19, 2025 End: April 19, 2025 Dr. Ene Zee MD Attending physician Active Start: April 19, 2025 End: April 19, 2025 Dr. Ene Zee MD Referring Provider Active Start: April 19, 2025 End: April 19, 2025 Goals (unrecognized section and content) Goals may be documented in a n alternate sectionGoals may be documented in an alternate sectionGoals may be documented in an alternate sectionGoals may be documented in an alternate sectionGoals may be documented in an alternate sectionGoals may be documented in an alternate section FOR RECORDS PERTAINING TO PATIENTS WHO ARE [...] BE BASED ON THE PRIMARY CLINICAL RECORDS. [employer] [facility]. provides no warranty or guarantee of the accuracy or completeness of information in this document.
== END | disposition home or self-care (01) ==
LOC: OPBI 15:25
PROVIDERS: PCP Internal Medicine; Referring Provider Obstetrics & Gynecology; Visit Provider Obstetrics & Gynecology
DX: Z12.31 Encounter for screening mammogram for malignant neoplasm of breast (principal)
CPT/HCPCS: 77063; 77067